=== PATIENT | female | born 1980 | race Caucasian/White ===

== ENCOUNTER → 2016-08-09 | Day surgery (SDC) | payer OTHER ==
[~2016-08-09] VITALS: Ht 172.7 cm; Wt 87.5 kg
[~2016-08-09] MED LIST: GLYCOPYRROLATE INJ 0.2 MG/ML 2 ML VIAL As Ordered ONE; IBUPROFEN 600 MG TAB PO PRN; LATU20TA PO; LIDOCAINE 2% INJ 100 MG/5 ML SDV (FOR ANES.) As Ordered ONE; LR 1,000 ML IV SCH; MIDAZOLAM INJ 2 MG/2 ML VIAL (J2250) As Ordered ONE; NORCO, ANEXSIA 5/325MG TABLET (HYDROcodone/ACETAMINOPHEN) PO PRN; OMEP40CA2 PO; ONDANSETRON 4MG/2ML VIAL (J2405) As Ordered ONE; ONDANSETRON 4MG/2ML VIAL (J2405) IV PRN; PHEN-223 PO; PROPOFOL 200 MG/20 ML VIAL As Ordered ONE; ROCURONIUM BROMIDE 50 MG/5 ML VIAL As Ordered ONE; SELE200C PO; VITA200016 PO; WELLTAB38 PO; fentaNYL 100 MCG/2 ML INJECTION (J3010) IV PRN; fentaNYL 250 MCG/5 ML INJECTION (J3010) As Ordered ONE
[2016-08-09 07:20] LABS: CONTROL LINE UCG INT CTR LINE PRESENT
--- NOTE | 2016-08-09 11:14 | RO ---
DATE OF PROCEDURE: 08/09/2016 PREOPERATIVE DIAGNOSIS/INDICATION FOR SURGERY: Desire for permanent sterilization. POSTOPERATIVE DIAGNOSIS: Desire for permanent sterilization. PROCEDURE: Laparoscopic bilateral tubal ligation by bipolar cautery. SURGEON: Yelitza Ugalde MD CLARIFIER: ANESTHESIA: General endotracheal anesthesia. BRIEF DESCRIPTION OF PROCEDURE AND FINDINGS: Valencia was brought to the operating room where sufficient general endotracheal anesthesia was induced. She was prepped, draped and positioned in the usual sterile fashion with the bladder emptied and uterine manipulator placed. Then, attention turned to the abdomen where a transverse semilunar incision was made below the umbilicus and sharp and blunt dissection continued to the subcutaneous tissues to the level of the rectus fascia, which was transversely incised, secured with #0 Vicryl retention sutures and the peritoneum entered under direct visualization. The Nish cannula was then placed into the peritoneal cavity under direct visualization in an open laparoscopic technique. It was then secured in placed with #0 Vicryl retention sutures and CO2 insufflation was then begun. After adequate CO2 insufflation, the peritoneal cavity was visualized. There were normal shiny peritoneal surfaces throughout. There was no excrescence, exudate, nor ascites. There is some very minor filmy adhesions of the descending colon to the lateral abdominal and pelvic sidewalls, but no significant distorting adhesions. The uterus was elevated using the uterine manipulator, which had already been placed, and the patient was placed in Trendelenburg and we could then see normal tubes. The bipolar cautery was used to coagulate the tubes in four separate locations along each tube in the usual fashion. Pictures were taken to document our progress. Thee was no evidence of endometriosis or other significant lesion. The procedure was then ended. Estimated blood loss for the procedure was maybe 2 mL. Fluid replacement was crystalloid. Complications: None. Condition and Disposition: Valencia tolerated the procedure well and was recovering in the recovery room in good condition.
[2016-08-09 11:30] VITALS: BP 122/74
== END ==
LOC: M SDC 06:38
PROVIDERS: ATTEND Obstetrics & Gynecology
DX: Z30.2 Encounter for sterilization (principal); K21.9 Gastro-esophageal reflux disease without esophagitis; F32.9 Major depressive disorder, single episode, unspecified; F41.9 Anxiety disorder, unspecified; Z87.891 Personal history of nicotine dependence; Z79.899 Other long term (current) drug therapy; Z88.0 Allergy status to penicillin

== ENCOUNTER 2016-08-11 22:02 | Emergency (ER) | payer OTHER ==
[~2016-08-11 22:02] MED LIST changes: -GLYCOPYRROLATE INJ 0.2 MG/ML 2 ML VIAL As Ordered ONE; -IBUPROFEN 600 MG TAB PO PRN; -LIDOCAINE 2% INJ 100 MG/5 ML SDV (FOR ANES.) As Ordered ONE; -LR 1,000 ML IV SCH; -MIDAZOLAM INJ 2 MG/2 ML VIAL (J2250) As Ordered ONE; -NORCO, ANEXSIA 5/325MG TABLET (HYDROcodone/ACETAMINOPHEN) PO PRN; -ONDANSETRON 4MG/2ML VIAL (J2405) As Ordered ONE; -ONDANSETRON 4MG/2ML VIAL (J2405) IV PRN; -PROPOFOL 200 MG/20 ML VIAL As Ordered ONE; -ROCURONIUM BROMIDE 50 MG/5 ML VIAL As Ordered ONE; -fentaNYL 100 MCG/2 ML INJECTION (J3010) IV PRN; -fentaNYL 250 MCG/5 ML INJECTION (J3010) As Ordered ONE
[2016-08-11] MEDS ORDERED: PERCOCET 5MG/325MG TAB As Ordered ONE (22:56)
[2016-08-11 23:13] LABS: MEAN CORPUSCULAR HEMOGLOBIN 33.4 pg (27.0-33.0); MEAN CORPUSCULAR HGB CONC 35.2 g/dl (32.0-36.5); MEAN CORPUSCULAR VOLUME 94.7 fl (80.0-96.0); WHITE BLOOD COUNT 7.8 K/mm3 (4.0-10.0)
[2016-08-11 23:44] LABS: ANION GAP 9 MEQ/L (8-16); BLOOD UREA NITROGEN 15 MG/DL (7-18); CALCIUM LEVEL 8.8 MG/DL (8.5-10.1); CARBON DIOXIDE LEVEL 28 MEQ/L (21-32); CHLORIDE LEVEL 104 MEQ/L (98-107); CREATININE FOR GFR 0.88 MG/DL (0.55-1.02); GLOMERULAR FILTRATION RATE > 60.0 (>60); GLUCOSE, FASTING 77 MG/DL (70-105); POTASSIUM SERUM 3.7 MEQ/L (3.5-5.1); SODIUM LEVEL 141 MEQ/L (136-145)
--- NOTE | 2016-08-12 00:10 | REPUSA ---
CT of the abdomen and pelvis without contrast Clinical statement: Pain, pelvic. Technique: Multiple axial CT images were obtained from the base of the lungs to the floor of the pelv is utilizing 5 mm axial slices without administration of contrast. Coronal and sagittal reconstructio ns were also obtained. No comparison is available. Findings: Chest: The visualized lung bases are clear. Abdomen: There are several tiny pockets of free air under the diaphragm. This is seen both under the right and left diaphragm, as well as within the gallbladder fossa. This is consistent with postsurgic al changes. The kidneys are normal in size bilaterally. There is no evidence of hydronephrosis or nep hrolithiasis. The liver, spleen, pancreas, gallbladder and adrenal glands are unremarkable. The aorta demonstrates normal caliber and contour. There is no abdominal lymphadenopathy or ascites. Pelvis: There is mild sigmoid diverticulosis without evidence of diverticulitis. No obstructive or in flammatory bowel are noted. The appendix is normal. The urinary bladder is within normal limits. Ther e is no pelvic lymphadenopathy or ascites. The other pelvic structures appear unremarkable. Bones: There are no suspicious osseous abnormalities seen. Impression: 1. No focal acute findings to explain the patient's pain. 2. Tiny pockets of free air, which are iatrogenic in nature. 3. No evidence of hydronephrosis or nephrolithiasis. 4. Mild sigmoid diverticulosis without evidence of diverticulitis. No obstructive or inflammatory bow el changes. 5. The uterus and adnexa appear grossly unremarkable. ER physician was notified of these findings at 12:06 AM on 08/12/2015.
[2016-08-12] MEDS ORDERED: CIPROFLOXACIN 500 MG TAB As Ordered ONE (00:14)
--- NOTE | 2016-08-12 00:24 | EDDOCDS ---
Physician Documentation [facility] Name: Valencia Pierce Age: 36 yrs Sex: Female : 1980 Arrival Date: 08/11/2016 Time: 22:02 Bed 7 Private MD: Sally Marcelino Abdul Disposition: 08/12/16 00:14 Discharged to Home/Self Care. Impression: Urinary tract infection, site not specified. - Condition is Stable. - Prescriptions for Cipro 500 mg Oral Tablet - take 1 tablet by ORAL route every 12 hours; 10 tablet. - Medication Reconciliation, Local Pharmacy Hours form. - Follow up: Sally Marcelino; When: Call to arrange an appointment; Reason: Recheck today's complaints. - Problem is new. - Symptoms have improved. Historical: - Allergies: PENICILLINS; - Home Meds: 1. Motrin 600 mg Oral tab as needed (Last dose: 08/11/2016 18:00) - PMHx: none; - PSHx: Tubal ligation; - Social history: Smoking status: Patient states was never smoker of tobacco. No barriers to communication noted, The patient speaks fluent Azeri. - Family history: Not pertinent. - : The pt / caregiver states he / she is not on anticoagulants. Home medication list is obtained from the patient. - Exposure Risk Screening:: None identified. CANDY BUTCHER: 08/11 22:17 3, Living 1, LMP 07/25/2016 mcp Vital Signs: 22:04 BP 139 / 88; Pulse 99; Resp 18; Temp 98.1(O); Pulse Ox 99% on R/A; Weight 90.72 kg / lr2 200 lbs (R); Height 5 ft. 8 in. (172.72 cm) (R); Pain 10/10; 08/12 00:22 BP 139 / 90; Pulse 91; Resp 18 S; Temp 96.9(O); Pulse Ox 99% on R/A; Pain 0/10; af2 08/11 22:04 Body Mass Index 30.41 (90.72 kg, 172.72 cm) lr2 MDM: 08/11 22:40 oxyCODONE-acetaminophen 5 mg-325 mg 2 tabs PO once ordered. ke 22:41 CBC Ordered. EDMS 22:41 BMP Ordered. EDMS 22:41 UA Ordered. EDMS 22:41 Urine Culture Ordered. EDMS 22:41 CT ABD & PELVIS: No Contrast Ordered. EDMS 22:56 Financial registration complete. ks16 22:57 [facility] Payment Agreement was scanned into [employer] and attached to record. ks 23:17 CBC Reviewed. ke 23:17 UA Reviewed. ke 23:49 BMP Reviewed. ke 23:49 Ciprofloxacin 500 mg PO once ordered. ke 08/12 00:13 CT ABD & PELVIS: No Contrast Reviewed. cs11 Administered Medications: 08/11 23:00 Drug: oxyCODONE-acetaminophen 2 tabs [oxycodone-acetaminophen 5 mg-325 mg tablet (2 af2 tabs)] Route: PO; 08/12 00:12 Follow up: Response: Pain is decreased af2 00:21 Drug: Ciprofloxacin 500 mg [ciprofloxacin 500 mg tablet (1 tabs)] Route: PO; af2 Signatures: Dispatcher [employer] EDBryanna Enriquez RN RN mcp Solis Wade, MAMMAL KEEPER MAMMAL KEEPER Ji Maza DO DO cs11 Hallie Lanza RN RN af2 Janell Lezama, Reg Reg ks16 The chart was reviewed and I authenticate all verbal orders and agree with the evaluation and treatment provided.Attachments: 08/11 22:57 [facility] Payment Agreement [email or web address] MTDD
--- NOTE | 2016-08-12 00:24 | EDDOCDS ---
Nurse's Notes [facility] Name: Valencia Pierce Age: 36 yrs Sex: Female : 1980 Arrival Date: 08/11/2016 Time: 22:02 Bed 7 Private MD: Sally Marcelino Abdul Diagnosis: Urinary tract infection, site not specified Presentation: 08/11 22:15 Presenting complaint: Patient states: Had tubes tied on --feels like she has a [facility] bad urinary tract infection. Adult Sepsis Screening: The patient does not have new or worsening altered mentation. Patient's respiratory rate is less than 22. Systolic blood pressure is greater than 100. Patient has a qSOFA score of 0- Negative Sepsis Screen. Suicide/Homicide risk assessment- the patient denies having any suicidal and/or homicidal ideations and does not present with any other emotional, behavioral or mental health complaints. Status: Patient is not a juke box servicer or dependent. Transition of care: patient was not received from another setting of care. 22:15 Acuity: RUTH Level 4 [facility] 22:15 Method Of Arrival: Walkin/Carried/Asstd [facility] Triage Assessment: 22:17 General: Appears uncomfortable, Behavior is cooperative. Pain: Location: right lower mcp quadrant and left lower quadrant Pain currently is 10 out of 10 on a pain scale. HIV screening NA for this visit Offered previously. Neurological: No deficits noted. Respiratory: No deficits noted. : Reports burning with urination pain with urination urinary frequency. Derm: Skin is pink, warm & dry. GLOVE TURNER: 22:17 3, Living 1, LMP 07/25/2016 [facility] Historical: - Allergies: PENICILLINS; - Home Meds: 1. Motrin 600 mg Oral tab as needed (Last dose: 08/11/2016 18:00) - PMHx: none; - PSHx: Tubal ligation; - Social history: Smoking status: Patient states was never smoker of tobacco. No barriers to communication noted, The patient speaks fluent Tamazight. - Family history: Not pertinent. - : The pt / caregiver states he / she is not on anticoagulants. Home medication list is obtained from the patient. - Exposure Risk Screening:: None identified. Screenin:15 Screening information is obtained from the patient. Fall risk: No risks identified. af2 Assistance ADL's: requires no assistance with activities of daily living. Abuse/DV Screen: The patient / caregiver reports he/she is: not in a situation that causes fear, pain or injury. Nutritional screening: No deficits noted. Advance Directives: Currently, there is no health care proxy. home support is adequate. Assessment: 23:16 General: Appears in no apparent distress, Behavior is cooperative. : Reports burning af2 with urination. 08/12 00:21 General: Appears in no apparent distress, Behavior is cooperative. Respiratory: Airway af2 is patent Respiratory effort is even, unlabored. : Reports burning with urination. Derm: Skin is pink, warm & dry. Vital Signs: 08/11 22:04 BP 139 / 88; Pulse 99; Resp 18; Temp 98.1(O); Pulse Ox 99% on R/A; Weight 90.72 kg (R); lr2 Height 5 ft. 8 in. (172.72 cm) (R); Pain 10/10; 08/12 00:22 BP 139 / 90; Pulse 91; Resp 18 S; Temp 96.9(O); Pulse Ox 99% on R/A; Pain 0/10; af2 08/11 22:04 Body Mass Index 30.41 (90.72 kg, 172.72 cm) lr2 Vitals: 08/11 22:04 Log In Time: August 11, 2016 at 22:02. lr2 ED Course: 22:03 Patient visited by Adilia Abel. lr2 22:03 Patient moved to Waiting lr2 22:05 Sally Marcelino is Private Physician. lr2 22:05 Patient moved to Pre RCE lr2 22:16 Triage Initiated mcp 22:18 Patient visited by Bryanna Hardin, ROBINSON. mcp 22:26 Hallie Lanza,RN is Primary Nurse. sew 22:26 Patient moved to 7 sew 22:27 [facility] ke 22:27 Patient visited by Solis Wade FNP. ke 22:27 Patient visited by Solis Wade FNP. ke 22:57 [facility] Payment Agreement was scanned into [employer] and attached to record. ks16 22:59 Patient visited by Solis Wade FNP. ke 23:15 The patient / caregiver is instructed regarding the plan of care and ED course. Patient af2 has correct armband on for positive identification. 23:16 No IV's were initiated during this patient's visit. No procedures done that require af2 assistance. Labs drawn. (by ED staff). Sent per order to lab. Urine collected. Clean catch specimen. Urine specimen sent to lab. 23:17 Patient visited by Hallie Lanza RN. af2 23:40 Patient visited by Solis Wade FNP. uday 08/12 00:10 Patient visited by Hallie Lanza RN. af2 00:12 CT ABD & PELVIS: No Contrast Returned. EDMS 00:14 Ji Guzman DO is Attending Physician. cs11 00:14 Sally Marcelino is Referral Physician. cs11 Administered Medications: 08/11 23:00 Drug: oxyCODONE-acetaminophen 2 tabs [oxycodone-acetaminophen 5 mg-325 mg tablet (2 af2 tabs)] Route: PO; 08/12 00:12 Follow up: Response: Pain is decreased af2 00:21 Drug: Ciprofloxacin 500 mg [ciprofloxacin 500 mg tablet (1 tabs)] Route: PO; af2 Order Results: Lab Order: CBC; SPEC'M 08/11/16 23:01 Test: WHITE BLOOD COUNT; Value: 7.8; Range: 4.0-10.0; Units: K/mm3; Status: F Test: RED BLOOD COUNT; Value: 4.06; Range: 4.00-5.40; Units: M/mm3; Status: F Test: HEMOGLOBIN; Value: 13.5; Range: 12.0-16.0; Units: g/dl; Status: F Test: HEMATOCRIT; Value: 38.5; Range: 36.0-47.0; Units: %; Status: F Test: MEAN CORPUSCULAR VOLUME; Value: 94.7; Range: 80.0-96.0; Units: fl; Status: F Test: MEAN CORPUSCULAR HEMOGLOBIN; Value: 33.4; Range: 27.0-33.0; Abnormal: Above high normal; Units: pg; Status: F Test: MEAN CORPUSCULAR HGB CONC; Value: 35.2; Range: 32.0-36.5; Units: g/dl; Status: F Test: RED CELL DISTRIBUTION WIDTH; Value: 13.0; Range: 11.5-14.5; Units: %; Status: F Test: PLATELET COUNT, AUTOMATED; Value: 219; Range: 150-450; Units: k/mm3; Status: F Lab Order: [facility]; SPEC'M 08/11/16 23:01 Test: GLUCOSE, FASTING; Value: 77; Range: 70-105; Units: MG/DL; Status: F Test: BLOOD UREA NITROGEN; Value: 15; Range: 7-18; Units: MG/DL; Status: F Test: CREATININE FOR GFR; Value: 0.88; Range: 0.55-1.02; Units: MG/DL; Status: F Test: GLOMERULAR FILTRATION RATE; Value: > 60.0; Range: >60; Status: F Test: SODIUM LEVEL; Value: 141; Range: 136-145; Units: MEQ/L; Status: F Test: POTASSIUM SERUM; Value: 3.7; Range: 3.5-5.1; Units: MEQ/L; Status: F Test: CHLORIDE LEVEL; Value: 104; Range: 98-107; Units: MEQ/L; Status: F Test: CARBON DIOXIDE LEVEL; Value: 28; Range: 21-32; Units: MEQ/L; Status: F Test: ANION GAP; Value: 9; Range: 8-16; Units: MEQ/L; Status: F Test: CALCIUM LEVEL; Value: 8.8; Range: 8.5-10.1; Units: MG/DL; Status: F Test Note: ; Units are mL/min/1.73 m2 Chronic Kidney Disease Staging per NKF: Stage I & II GFR >=60 Normal to Mildly Decreased Stage III GFR 30-59 Moderately Decreased Stage IV GFR 15-29 Severely Decreased Stage V GFR <15 Very Little GFR Left ESRD GFR <15 on CORE PASTER Lab Order: ; SPEC'M 08/11/16 23:01 Test: APPEARANCE, URINE; Value: HAZY; Range: CLEAR; Status: F Test: COLOR, URINE; Value: YELLOW; Range: YELLOW; Status: F Test: PH,URINE; Value: 5.0; Range: 5.0-9.0; Units: UNITS; Status: F Test: SPECIFIC GRAVITY URINE AUTO; Value: 1.026; Range: 1.002-1.035; Status: F Test: PROTEIN, URINE AUTO; Value: NEGATIVE; Range: NEGATIVE; Units: mg/dL; Status: F Test: GLUCOSE, URINE (UA) AUTO; Value: NEGATIVE; Range: NEGATIVE; Units: mg/dL; Status: F Test: KETONE, URINE AUTO; Value: NEGATIVE; Range: NEGATIVE; Units: mg/dL; Status: F Test: UROBILINOGEN, URINE AUTO; Value: 0.2; Range: 0.0-2.0; Units: mg/dL; Status: F Test: BILIRUBIN, URINE AUTO; Value: NEGATIVE; Range: NEGATIVE; Status: F Test: NITRITE, URINE AUTO; Value: NEGATIVE; Range: NEGATIVE; Status: F Test: LEUKOCYTE ESTERASE, URINE AUTO; Value: 3+; Range: NEGATIVE; Abnormal: Above high normal; Status: F Test: BLOOD, URINE BLOOD; Value: 2+; Range: NEGATIVE; Abnormal: Above high normal; Status: F Test: WBC, URINE AUTO; Value: 83; Range: 0-3; Abnormal: Above high normal; Units: /HPF; Status: F Test: RBC, URINE AUTO; Value: 11; Range: 0-3; Abnormal: Above high normal; Units: /HPF; Status: F Test: BACTERIA, URINE AUTO; Value: 2+; Range: NEGATIVE; Abnormal: Above high normal; Status: F Test: SQUAMOUS EPITHELIAL CELL UR AU; Value: 6; Range: 0-6; Units: /HPF; Status: F Test: MUCUS, URINE; Value: SMALL; Range: NEGATIVE; Status: F Test: HYALINE CAST, URINE AUTO; Value: 0; Range: 0-1; Units: /LPF; Status: F Radiology Order: CT ABD & PELVIS: No Contrast Test: CT ABD & PELVIS: No Contrast REASON FOR EXAMINATION: pelvic pain post operative; ; CT of the abdomen and pelvis without contrast; Clinical statement: Pain, pelvic.; Technique: Multiple axial CT images were obtained from the base of the lungs to the floor of the pelv; is utilizing 5 mm axial slices without administration of contrast. Coronal and sagittal reconstructio; ns were also obtained.; No comparison is available.; Findings:; Chest: The visualized lung bases are clear.; Abdomen: There are several tiny pockets of free air under the diaphragm. This is seen both under the; right and left diaphragm, as well as within the gallbladder fossa. This is consistent with postsurgic; al changes. The kidneys are normal in size bilaterally. There is no evidence of hydronephrosis or nep; hrolithiasis. The liver, spleen, pancreas, gallbladder and adrenal glands are unremarkable. The aorta; demonstrates normal caliber and contour. There is no abdominal lymphadenopathy or ascites.; Pelvis: There is mild sigmoid diverticulosis without evidence of diverticulitis. No obstructive or in; flammatory bowel are noted. The appendix is normal. The urinary bladder is within normal limits. Ther; e is no pelvic lymphadenopathy or ascites. The other pelvic structures appear unremarkable.; Bones: There are no suspicious osseous abnormalities seen.; Impression:; 1. No focal acute findings to explain the patient's pain.; 2. Tiny pockets of free air, which are iatrogenic in nature.; 3. No evidence of hydronephrosis or nephrolithiasis.; 4. Mild sigmoid diverticulosis without evidence of diverticulitis. No obstructive or inflammatory bow; el changes.; 5. The uterus and adnexa appear grossly unremarkable.; ER physician was notified of these findings at 12:06 AM on 08/12/2015.; ; Outcome: 00:14 Discharge ordered by Provider. cs11 00:22 Discharge Assessment: Patient awake, alert and oriented x 3. No cognitive and/or af2 functional deficits noted. Patient verbalized understanding of disposition instructions. patient administered narcotics - yes. Pt provided with safe discharge. The following High Risk Discharge criteria are identified: None. Discharged to home ambulatory. Condition: stable. Discharge instructions given to patient, Instructed on discharge instructions, follow up and referral plans. medication usage, no driving heavy equipment, Demonstrated understanding of instructions, medications, Pt was receptive of discharge instructions/ teaching. CT Study completed. Property :Personal belongings accompany Pt. 00:23 Patient left the ED. af2 Signatures: Dispatcher [employer] EDBryanna Enriquez, RN Solis Horne mcp, FNP FNP ke Wallace, Sarah sew Schiff, Craig, DO DO cs11 Hallie Lanza RN RN af2 Janell Lezama, Reg Reg ks16 Adilia Abel lr2 MTDD
--- NOTE | 2016-08-14 01:24 | EDDOCDS ---
Physician Documentation [facility] Name: Valencia Pierce Age: 36 yrs Sex: Female : 1980 Arrival Date: 08/11/2016 Time: 22:02 Bed 7 Private MD: Sally Marcelino Abdul Disposition: 08/12/16 00:14 Discharged to Home/Self Care. Impression: Urinary tract infection, site not specified. - Condition is Stable. - Prescriptions for Cipro 500 mg Oral Tablet - take 1 tablet by ORAL route every 12 hours; 10 tablet. - Medication Reconciliation, Local Pharmacy Hours form. - Follow up: Sally Marcelino; When: Call to arrange an appointment; Reason: Recheck today's complaints. - Problem is new. - Symptoms have improved. Historical: - Allergies: PENICILLINS; - Home Meds: 1. Motrin 600 mg Oral tab as needed (Last dose: 08/11/2016 18:00) - PMHx: none; - PSHx: Tubal ligation; - Social history: Smoking status: Patient states was never smoker of tobacco. No barriers to communication noted, The patient speaks fluent Romanian. - Family history: Not pertinent. - : The pt / caregiver states he / she is not on anticoagulants. Home medication list is obtained from the patient. - Exposure Risk Screening:: None identified. BLANKET INSPECTOR: 08/11 22:17 3, Living 1, LMP 07/25/2016 mcp Vital Signs: 22:04 BP 139 / 88; Pulse 99; Resp 18; Temp 98.1(O); Pulse Ox 99% on R/A; Weight 90.72 kg / lr2 200 lbs (R); Height 5 ft. 8 in. (172.72 cm) (R); Pain 10/10; 08/12 00:22 BP 139 / 90; Pulse 91; Resp 18 S; Temp 96.9(O); Pulse Ox 99% on R/A; Pain 0/10; af2 08/11 22:04 Body Mass Index 30.41 (90.72 kg, 172.72 cm) lr2 MDM: 08/11 22:40 oxyCODONE-acetaminophen 5 mg-325 mg 2 tabs PO once ordered. ke 22:41 CBC Ordered. EDMS 22:41 BMP Ordered. EDMS 22:41 UA Ordered. EDMS 22:41 Urine Culture Ordered. EDMS 22:41 CT ABD & PELVIS: No Contrast Ordered. EDMS 22:56 Financial registration complete. ks 22:57 [facility] Payment Agreement was scanned into [employer] and attached to record. ks 23:17 CBC Reviewed. ke 23:17 UA Reviewed. ke 23:49 BMP Reviewed. ke 23:49 Ciprofloxacin 500 mg PO once ordered. 08/12 00:13 CT ABD & PELVIS: No Contrast Reviewed. [facility] 08:03 T-Sheet-- Draft Copy was scanned into [employer] and attached to record. [facility] Administered Medications: 08/11 23:00 Drug: oxyCODONE-acetaminophen 2 tabs [oxycodone-acetaminophen 5 mg-325 mg tablet (2 af2 tabs)] Route: PO; 08/12 00:12 Follow up: Response: Pain is decreased af2 00:21 Drug: Ciprofloxacin 500 mg [ciprofloxacin 500 mg tablet (1 tabs)] Route: PO; af2 Signatures: Dispatcher [employer] Bryanna Enciso RN RN mcp Elsner, Karl, DRUM ATTENDANT DRUM ATTENDANT Ji Maza, DO cs11 Hallie Lanza RN RN af2 Janell Lezama, Reg Reg ks16 Candice Adan [facility] The chart was reviewed and I authenticate all verbal orders and agree with the evaluation and treatment provided.Attachments: 08/11 21:57 [facility] Payment Agreement 08/12 08:03 T-Sheet-- Draft Copy [facility] Chart Complete MTDD
--- NOTE | 2016-08-14 01:24 | EDDOCDS ---
Nurse's Notes [facility] Name: Valencia Pierce Age: 36 yrs Sex: Female : 1980 Arrival Date: 08/11/2016 Time: 22:02 Bed 7 Private MD: Sally Marcelino Abdul Diagnosis: Urinary tract infection, site not specified Presentation: 08/11 22:15 Presenting complaint: Patient states: Had tubes tied on --feels like she has a [facility] bad urinary tract infection. Adult Sepsis Screening: The patient does not have new or worsening altered mentation. Patient's respiratory rate is less than 22. Systolic blood pressure is greater than 100. Patient has a qSOFA score of 0- Negative Sepsis Screen. Suicide/Homicide risk assessment- the patient denies having any suicidal and/or homicidal ideations and does not present with any other emotional, behavioral or mental health complaints. 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 Transition of care: patient was not received from another setting of care. 22:15 Acuity: RUTH Level 4 [facility] 22:15 Method Of Arrival: Walkin/Carried/Asstd [facility] Triage Assessment: 22:17 General: Appears uncomfortable, Behavior is cooperative. Pain: Location: right lower mcp quadrant and left lower quadrant Pain currently is 10 out of 10 on a pain scale. HIV screening NA for this visit Offered previously. Neurological: No deficits noted. Respiratory: No deficits noted. : Reports burning with urination pain with urination urinary frequency. Derm: Skin is pink, warm & dry. 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 Motrin 600 mg Oral tab as needed (Last dose: 08/11/2016 18:00) - PMHx: none; - PSHx: Tubal ligation; - Social history: Smoking status: Patient states was never smoker of tobacco. No barriers to communication noted, The patient speaks fluent Croatian. - Family history: Not pertinent. - : The pt / caregiver states he / she is not on anticoagulants. Home medication list is obtained from the patient. - Exposure Risk Screening:: None identified. Screenin:15 Screening information is obtained from the patient. Fall risk: No risks identified. af2 Assistance ADL's: requires no assistance with activities of daily living. Abuse/DV Screen: The patient / caregiver reports he/she is: not in a situation that causes fear, pain or injury. Nutritional screening: No deficits noted. Advance Directives: Currently, there is no health care proxy. home support is adequate. Assessment: 23:16 General: Appears in no apparent distress, Behavior is cooperative. : Reports burning af2 with urination. 08/12 00:21 General: Appears in no apparent distress, Behavior is cooperative. Respiratory: Airway af2 is patent Respiratory effort is even, unlabored. : Reports burning with urination. Derm: Skin is pink, warm & dry. Vital Signs: 08/11 22:04 BP 139 / 88; Pulse 99; Resp 18; Temp 98.1(O); Pulse Ox 99% on R/A; Weight 90.72 kg (R); lr2 Height 5 ft. 8 in. (172.72 cm) (R); Pain 10/10; 08/12 00:22 BP 139 / 90; Pulse 91; Resp 18 S; Temp 96.9(O); Pulse Ox 99% on R/A; Pain 0/10; af2 08/11 22:04 Body Mass Index 30.41 (90.72 kg, 172.72 cm) lr2 Vitals: 08/11 22:04 Log In Time: August 11, 2016 at 22:02. lr2 ED Course: 22:03 Patient visited by Adilia Abel. lr2 22:03 Patient moved to Waiting lr2 22:05 Sally Marcelino is Private Physician. lr2 22:05 Patient moved to Pre RCE lr2 22:16 Triage Initiated mcp 22:18 Patient visited by Bryanna Hardin, ROBINSON. mcp 22:26 Hallie Lanza,RN is Primary Nurse. sew 22:26 Patient moved to 7 sew 22:27 [facility]. ke 22:27 Patient visited by Solis Wade FNP. ke 22:27 Patient visited by Solis Wade FNP. ke 22:57 [facility] Payment Agreement was scanned into [employer] and attached to record. ks16 22:59 Patient visited by Solis Wade FNP. ke 23:15 The patient / caregiver is instructed regarding the plan of care and ED course. Patient af2 has correct armband on for positive identification. 23:16 No IV's were initiated during this patient's visit. No procedures done that require af2 assistance. Labs drawn. (by ED staff). Sent per order to lab. Urine collected. Clean catch specimen. Urine specimen sent to lab. 23:17 Patient visited by Hallie Lanza RN. af2 23:40 Patient visited by Solis Wade FNP. ke 08/12 00:10 Patient visited by Hallie Lanza RN. af2 00:12 CT ABD & PELVIS: No Contrast Returned. EDMS 00:14 Ji Guzman DO is Attending Physician. cs11 00:14 Sally Marcelino is Referral Physician. cs11 08:03 T-Sheet-- Draft Copy was scanned into [employer] and attached to record. seh Administered Medications: 08/11 23:00 Drug: oxyCODONE-acetaminophen 2 tabs [oxycodone-acetaminophen 5 mg-325 mg tablet (2 af2 tabs)] Route: PO; 08/12 00:12 Follow up: Response: Pain is decreased af2 00:21 Drug: Ciprofloxacin 500 mg [ciprofloxacin 500 mg tablet (1 tabs)] Route: PO; af2 Order Results: Lab Order: CBC; SPEC'M 08/11/16 23:01 Test: WHITE BLOOD COUNT; Value: 7.8; Range: 4.0-10.0; Units: K/mm3; Status: F Test: RED BLOOD COUNT; Value: 4.06; Range: 4.00-5.40; Units: M/mm3; Status: F Test: HEMOGLOBIN; Value: 13.5; Range: 12.0-16.0; Units: g/dl; Status: F Test: HEMATOCRIT; Value: 38.5; Range: 36.0-47.0; Units: %; Status: F Test: MEAN CORPUSCULAR VOLUME; Value: 94.7; Range: 80.0-96.0; Units: fl; Status: F Test: MEAN CORPUSCULAR HEMOGLOBIN; Value: 33.4; Range: 27.0-33.0; Abnormal: Above high normal; Units: pg; Status: F Test: MEAN CORPUSCULAR HGB CONC; Value: 35.2; Range: 32.0-36.5; Units: g/dl; Status: F Test: RED CELL DISTRIBUTION WIDTH; Value: 13.0; Range: 11.5-14.5; Units: %; Status: F Test: PLATELET COUNT, AUTOMATED; Value: 219; Range: 150-450; Units: k/mm3; Status: F Lab Order: [facility]; SPEC'M 08/11/16 23:01 Test: GLUCOSE, FASTING; Value: 77; Range: 70-105; Units: MG/DL; Status: F Test: BLOOD UREA NITROGEN; Value: 15; Range: 7-18; Units: MG/DL; Status: F Test: CREATININE FOR GFR; Value: 0.88; Range: 0.55-1.02; Units: MG/DL; Status: F Test: GLOMERULAR FILTRATION RATE; Value: > 60.0; Range: >60; Status: F Test: SODIUM LEVEL; Value: 141; Range: 136-145; Units: MEQ/L; Status: F Test: POTASSIUM SERUM; Value: 3.7; Range: 3.5-5.1; Units: MEQ/L; Status: F Test: CHLORIDE LEVEL; Value: 104; Range: 98-107; Units: MEQ/L; Status: F Test: CARBON DIOXIDE LEVEL; Value: 28; Range: 21-32; Units: MEQ/L; Status: F Test: ANION GAP; Value: 9; Range: 8-16; Units: MEQ/L; Status: F Test: CALCIUM LEVEL; Value: 8.8; Range: 8.5-10.1; Units: MG/DL; Status: F Test Note: ; Units are mL/min/1.73 m2 Chronic Kidney Disease Staging per NKF: Stage I & II GFR >=60 Normal to Mildly Decreased Stage III GFR 30-59 Moderately Decreased Stage IV GFR 15-29 Severely Decreased Stage V GFR <15 Very Little GFR Left ESRD GFR <15 on COKE WORKER Lab Order: ; SPEC'08/11/16 23:01 Test: APPEARANCE, URINE; Value: HAZY; Range: CLEAR; Status: F Test: COLOR, URINE; Value: YELLOW; Range: YELLOW; Status: F Test: PH,URINE; Value: 5.0; Range: 5.0-9.0; Units: UNITS; Status: F Test: SPECIFIC GRAVITY URINE AUTO; Value: 1.026; Range: 1.002-1.035; Status: F Test: PROTEIN, URINE AUTO; Value: NEGATIVE; Range: NEGATIVE; Units: mg/dL; Status: F Test: GLUCOSE, URINE (UA) AUTO; Value: NEGATIVE; Range: NEGATIVE; Units: mg/dL; Status: F Test: KETONE, URINE AUTO; Value: NEGATIVE; Range: NEGATIVE; Units: mg/dL; Status: F Test: UROBILINOGEN, URINE AUTO; Value: 0.2; Range: 0.0-2.0; Units: mg/dL; Status: F Test: BILIRUBIN, URINE AUTO; Value: NEGATIVE; Range: NEGATIVE; Status: F Test: NITRITE, URINE AUTO; Value: NEGATIVE; Range: NEGATIVE; Status: F Test: LEUKOCYTE ESTERASE, URINE AUTO; Value: 3+; Range: NEGATIVE; Abnormal: Above high normal; Status: F Test: BLOOD, URINE BLOOD; Value: 2+; Range: NEGATIVE; Abnormal: Above high normal; Status: F Test: WBC, URINE AUTO; Value: 83; Range: 0-3; Abnormal: Above high normal; Units: /HPF; Status: F Test: RBC, URINE AUTO; Value: 11; Range: 0-3; Abnormal: Above high normal; Units: /HPF; Status: F Test: BACTERIA, URINE AUTO; Value: 2+; Range: NEGATIVE; Abnormal: Above high normal; Status: F Test: SQUAMOUS EPITHELIAL CELL UR AU; Value: 6; Range: 0-6; Units: /HPF; Status: F Test: MUCUS, URINE; Value: SMALL; Range: NEGATIVE; Status: F Test: HYALINE CAST, URINE AUTO; Value: 0; Range: 0-1; Units: /LPF; Status: F Radiology Order: CT ABD & PELVIS: No Contrast Test: CT ABD & PELVIS: No Contrast REASON FOR EXAMINATION: pelvic pain post operative; ; CT of the abdomen and pelvis without contrast; Clinical statement: Pain, pelvic.; Technique: Multiple axial CT images were obtained from the base of the lungs to the floor of the pelv; is utilizing 5 mm axial slices without administration of contrast. Coronal and sagittal reconstructio; ns were also obtained.; No comparison is available.; Findings:; Chest: The visualized lung bases are clear.; Abdomen: There are several tiny pockets of free air under the diaphragm. This is seen both under the; right and left diaphragm, as well as within the gallbladder fossa. This is consistent with postsurgic; al changes. The kidneys are normal in size bilaterally. There is no evidence of hydronephrosis or nep; hrolithiasis. The liver, spleen, pancreas, gallbladder and adrenal glands are unremarkable. The aorta; demonstrates normal caliber and contour. There is no abdominal lymphadenopathy or ascites.; Pelvis: There is mild sigmoid diverticulosis without evidence of diverticulitis. No obstructive or in; flammatory bowel are noted. The appendix is normal. The urinary bladder is within normal limits. Ther; e is no pelvic lymphadenopathy or ascites. The other pelvic structures appear unremarkable.; Bones: There are no suspicious osseous abnormalities seen.; Impression:; 1. No focal acute findings to explain the patient's pain.; 2. Tiny pockets of free air, which are iatrogenic in nature.; 3. No evidence of hydronephrosis or nephrolithiasis.; 4. Mild sigmoid diverticulosis without evidence of diverticulitis. No obstructive or inflammatory bow; el changes.; 5. The uterus and adnexa appear grossly unremarkable.; ER physician was notified of these findings at 12:06 AM on 08/12/2015.; ; Outcome: 00:14 Discharge ordered by Provider. cs11 00:22 Discharge Assessment: Patient awake, alert and oriented x 3. No cognitive and/or af2 functional deficits noted. Patient verbalized understanding of disposition instructions. patient administered narcotics - yes. Pt provided with safe discharge. The following High Risk Discharge criteria are identified: None. Discharged to home ambulatory. Condition: stable. Discharge instructions given to patient, Instructed on discharge instructions, follow up and referral plans. medication usage, no driving heavy equipment, Demonstrated understanding of instructions, medications, Pt was receptive of discharge instructions/ teaching. CT Study completed. Property :Personal belongings accompany Pt. 00:23 Patient left the ED. af2 Signatures: Dispatcher [employer] EDBryanna Enriquez, RN RN Solis Ritter, ACCESS ANALYST Candice Latham Craig, DO cs11 Hallie Lanza RN RN af2 Janell Lezama, Reg Reg ks16 Loco, Adilia Jackson2 Chart Complete MTDD
--- NOTE | 2016-08-14 01:24 | EDDOCDS ---
Physician Documentation [facility] Name: Valencia Pierce Age: 36 yrs Sex: Female : 1980 Arrival Date: 08/11/2016 Time: 22:02 Bed 7 Private MD: Sally Marcelino Abdul Disposition: 08/12/16 00:14 Discharged to Home/Self Care. Impression: Urinary tract infection, site not specified. - Condition is Stable. - Prescriptions for Cipro 500 mg Oral Tablet - take 1 tablet by ORAL route every 12 hours; 10 tablet. - Medication Reconciliation, Local Pharmacy Hours form. - Follow up: Sally Marcelino; When: Call to arrange an appointment; Reason: Recheck today's complaints. - Problem is new. - Symptoms have improved. Historical: - Allergies: PENICILLINS; - Home Meds: 1. Motrin 600 mg Oral tab as needed (Last dose: 08/11/2016 18:00) - PMHx: none; - PSHx: Tubal ligation; - Social history: Smoking status: Patient states was never smoker of tobacco. No barriers to communication noted, The patient speaks fluent Mongolian. - Family history: Not pertinent. - : The pt / caregiver states he / she is not on anticoagulants. Home medication list is obtained from the patient. - Exposure Risk Screening:: None identified. 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 8 in. (172.72 cm) (R); Pain 10/10; 08/12 00:22 BP 139 / 90; Pulse 91; Resp 18 S; Temp 96.9(O); Pulse Ox 99% on R/A; Pain 0/10; af2 08/11 22:04 Body Mass Index 30.41 (90.72 kg, 172.72 cm) lr2 MDM: 08/11 22:40 oxyCODONE-acetaminophen 5 mg-325 mg 2 tabs PO once ordered. ke 22:41 CBC Ordered. EDMS 22:41 BMP Ordered. EDMS 22:41 UA Ordered. EDMS 22:41 Urine Culture Ordered. EDMS 22:41 CT ABD & PELVIS: No Contrast Ordered. EDMS 22:56 Financial registration complete. ks 22:57 [facility] Payment Agreement was scanned into [employer] and attached to record. ks 23:17 CBC Reviewed. ke 23:17 UA Reviewed. ke 23:49 BMP Reviewed. ke 23:49 Ciprofloxacin 500 mg PO once ordered. 08/12 00:13 CT ABD & PELVIS: No Contrast Reviewed. [facility] 08:03 T-Sheet-- Draft Copy was scanned into [employer] and attached to record. [facility] Administered Medications: 08/11 23:00 Drug: oxyCODONE-acetaminophen 2 tabs [oxycodone-acetaminophen 5 mg-325 mg tablet (2 af2 tabs)] Route: PO; 08/12 00:12 Follow up: Response: Pain is decreased af2 00:21 Drug: Ciprofloxacin 500 mg [ciprofloxacin 500 mg tablet (1 tabs)] Route: PO; af2 Signatures: Dispatcher [employer] Bryanna Enciso RN RN mcp Elsner, Karl, PLUMBER CUB PLUMBER CUB Ji Maza, DO cs11 Hallie Lanza RN RN af2 Janell Lezama, Reg Reg ks16 Candice Adan [facility] The chart was reviewed and I authenticate all verbal orders and agree with the evaluation and treatment provided.Attachments: 08/11 21:57 [facility] Payment Agreement 08/12 08:03 T-Sheet-- Draft Copy [facility] Chart Complete MTDD
--- NOTE | 2016-08-16 15:35 | EDDOCDS ---
Physician Documentation [facility] Name: Valencia Pierce Age: 36 yrs Sex: Female : 1980 Arrival Date: 08/11/2016 Time: 22:02 Bed 7 Private MD: Sally Marcelino Abdul Disposition: 08/12/16 00:14 Discharged to Home/Self Care. Impression: Urinary tract infection, site not specified. - Condition is Stable. - Prescriptions for Cipro 500 mg Oral Tablet - take 1 tablet by ORAL route every 12 hours; 10 tablet. - Medication Reconciliation, Local Pharmacy Hours form. - Follow up: Sally Marcelino; When: Call to arrange an appointment; Reason: Recheck today's complaints. - Problem is new. - Symptoms have improved. Historical: - Allergies: PENICILLINS; - Home Meds: 1. Motrin 600 mg Oral tab as needed (Last dose: 08/11/2016 18:00) - PMHx: none; - PSHx: Tubal ligation; - Social history: Smoking status: Patient states was never smoker of tobacco. No barriers to communication noted, The patient speaks fluent Greek. - Family history: Not pertinent. - : The pt / caregiver states he / she is not on anticoagulants. Home medication list is obtained from the patient. - Exposure Risk Screening:: None identified. 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 8 in. (172.72 cm) (R); Pain 10/10; 08/12 00:22 BP 139 / 90; Pulse 91; Resp 18 S; Temp 96.9(O); Pulse Ox 99% on R/A; Pain 0/10; af2 08/11 22:04 Body Mass Index 30.41 (90.72 kg, 172.72 cm) lr2 MDM: 08/11 22:40 oxyCODONE-acetaminophen 5 mg-325 mg 2 tabs PO once ordered. ke 22:41 CBC Ordered. EDMS 22:41 BMP Ordered. EDMS 22:41 UA Ordered. EDMS 22:41 Urine Culture Ordered. EDMS 22:41 CT ABD & PELVIS: No Contrast Ordered. EDMS 22:56 Financial registration complete. :57 [facility] Payment Agreement was scanned into [employer] and attached to record. ks 23:17 CBC Reviewed. ke 23:17 UA Reviewed. ke 23:49 BMP Reviewed. ke 23:49 Ciprofloxacin 500 mg PO once ordered. ke 08/12 00:13 CT ABD & PELVIS: No Contrast Reviewed. [facility] 08:03 T-Sheet-- Draft Copy was scanned into [employer] and attached to record. [facility] Administered Medications: 08/11 23:00 Drug: oxyCODONE-acetaminophen 2 tabs [oxycodone-acetaminophen 5 mg-325 mg tablet (2 af2 tabs)] Route: PO; 08/12 00:12 Follow up: Response: Pain is decreased af2 00:21 Drug: Ciprofloxacin 500 mg [ciprofloxacin 500 mg tablet (1 tabs)] Route: PO; af2 Signatures: Dispatcher [employer] Bryanna Enciso RN RN mcp Elsner, Karl, DOORKEEPER DOORKEEPER Ji Maza, DO cs11 Hallie Lanza RN RN af2 Janell Lezama, Reg Reg ks16 Candice Adan [facility] The chart was reviewed and I authenticate all verbal orders and agree with the evaluation and treatment provided.Attachments: 08/11 21:57 [facility] Payment Agreement 08/12 08:03 T-Sheet-- Draft Copy [facility] MTDD
--- NOTE | 2016-08-16 15:35 | EDDOCDS ---
Physician Documentation [facility] Name: Valencia Pierce Age: 36 yrs Sex: Female : 1980 Arrival Date: 08/11/2016 Time: 22:02 Bed 7 Private MD: Sally Marcelino Abdul Disposition: 08/12/16 00:14 Discharged to Home/Self Care. Impression: Urinary tract infection, site not specified. - Condition is Stable. - Prescriptions for Cipro 500 mg Oral Tablet - take 1 tablet by ORAL route every 12 hours; 10 tablet. - Medication Reconciliation, Local Pharmacy Hours form. - Follow up: Sally Marcelino; When: Call to arrange an appointment; Reason: Recheck today's complaints. - Problem is new. - Symptoms have improved. Historical: - Allergies: PENICILLINS; - Home Meds: 1. Motrin 600 mg Oral tab as needed (Last dose: 08/11/2016 18:00) - PMHx: none; - PSHx: Tubal ligation; - Social history: Smoking status: Patient states was never smoker of tobacco. No barriers to communication noted, The patient speaks fluent Slovenian. - Family history: Not pertinent. - : The pt / caregiver states he / she is not on anticoagulants. Home medication list is obtained from the patient. - Exposure Risk Screening:: None identified. 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 8 in. (172.72 cm) (R); Pain 10/10; 08/12 00:22 BP 139 / 90; Pulse 91; Resp 18 S; Temp 96.9(O); Pulse Ox 99% on R/A; Pain 0/10; af2 08/11 22:04 Body Mass Index 30.41 (90.72 kg, 172.72 cm) lr2 MDM: 08/11 22:40 oxyCODONE-acetaminophen 5 mg-325 mg 2 tabs PO once ordered. ke 22:41 CBC Ordered. EDMS 22:41 BMP Ordered. EDMS 22:41 UA Ordered. EDMS 22:41 Urine Culture Ordered. EDMS 22:41 CT ABD & PELVIS: No Contrast Ordered. EDMS 22:56 Financial registration complete. :57 [facility] Payment Agreement was scanned into [employer] and attached to record. ks 23:17 CBC Reviewed. ke 23:17 UA Reviewed. ke 23:49 BMP Reviewed. ke 23:49 Ciprofloxacin 500 mg PO once ordered. ke 08/12 00:13 CT ABD & PELVIS: No Contrast Reviewed. [facility] 08:03 T-Sheet-- Draft Copy was scanned into [employer] and attached to record. [facility] Administered Medications: 08/11 23:00 Drug: oxyCODONE-acetaminophen 2 tabs [oxycodone-acetaminophen 5 mg-325 mg tablet (2 af2 tabs)] Route: PO; 08/12 00:12 Follow up: Response: Pain is decreased af2 00:21 Drug: Ciprofloxacin 500 mg [ciprofloxacin 500 mg tablet (1 tabs)] Route: PO; af2 Signatures: Dispatcher [employer] Bryanna Enciso RN RN mcp Elsner, Karl, CASING CREW PUSHER CASING CREW PUSHER Ji Maza, DO cs11 Hallie Lanza RN RN af2 Janell Lezama, Reg Reg ks16 Candice Adan [facility] The chart was reviewed and I authenticate all verbal orders and agree with the evaluation and treatment provided.Attachments: 08/11 21:57 [facility] Payment Agreement 08/12 08:03 T-Sheet-- Draft Copy [facility] MTDD
--- NOTE | 2016-08-16 15:35 | EDDOCDS ---
Nurse's Notes [facility] Name: Valencia Pierce Age: 36 yrs Sex: Female : 1980 Arrival Date: 08/11/2016 Time: 22:02 Bed 7 Private MD: Sally Marcelino Abdul Diagnosis: Urinary tract infection, site not specified Presentation: 08/11 22:15 Presenting complaint: Patient states: Had tubes tied on --feels like she has a [facility] bad urinary tract infection. Adult Sepsis Screening: The patient does not have new or worsening altered mentation. Patient's respiratory rate is less than 22. Systolic blood pressure is greater than 100. Patient has a qSOFA score of 0- Negative Sepsis Screen. Suicide/Homicide risk assessment- the patient denies having any suicidal and/or homicidal ideations and does not present with any other emotional, behavioral or mental health complaints. 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 Transition of care: patient was not received from another setting of care. 22:15 Acuity: RUTH Level [address] [facility] 22:15 Method Of Arrival: Walkin/Carried/Asstd [facility] Triage Assessment: 22:17 General: Appears uncomfortable, Behavior is cooperative. Pain: Location: right lower mcp quadrant and left lower quadrant Pain currently is 10 out of 10 on a pain scale. HIV screening NA for this visit Offered previously. Neurological: No deficits noted. Respiratory: No deficits noted. : Reports burning with urination pain with urination urinary frequency. Derm: Skin is pink, warm & dry. 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 Historical: - Allergies: PENICILLINS; - Home Meds: 1. Motrin 600 mg Oral tab as needed (Last dose: 08/11/2016 18:00) - PMHx: none; - PSHx: Tubal ligation; - Social history: Smoking status: Patient states was never smoker of tobacco. No barriers to communication noted, The patient speaks fluent Icelandic. - Family history: Not pertinent. - : The pt / caregiver states he / she is not on anticoagulants. Home medication list is obtained from the patient. - Exposure Risk Screening:: None identified. Screenin:15 Screening information is obtained from the patient. Fall risk: No risks identified. af2 Assistance ADL's: requires no assistance with activities of daily living. Abuse/DV Screen: The patient / caregiver reports he/she is: not in a situation that causes fear, pain or injury. Nutritional screening: No deficits noted. Advance Directives: Currently, there is no health care proxy. home support is adequate. Assessment: 23:16 General: Appears in no apparent distress, Behavior is cooperative. : Reports burning af2 with urination. 08/12 00:21 General: Appears in no apparent distress, Behavior is cooperative. Respiratory: Airway af2 is patent Respiratory effort is even, unlabored. : Reports burning with urination. Derm: Skin is pink, warm & dry. Vital Signs: 08/11 22:04 BP 139 / 88; Pulse 99; Resp 18; Temp 98.1(O); Pulse Ox 99% on R/A; Weight 90.72 kg (R); lr2 Height 5 ft. 8 in. (172.72 cm) (R); Pain 10/10; 08/12 00:22 BP 139 / 90; Pulse 91; Resp 18 S; Temp 96.9(O); Pulse Ox 99% on R/A; Pain 0/10; af2 08/11 22:04 Body Mass Index 30.41 (90.72 kg, 172.72 cm) lr2 Vitals: 08/11 22:04 Log In Time: August 11, 2016 at 22:02. lr2 ED Course: 22:03 Patient visited by Adilia Abel. lr2 22:03 Patient moved to Waiting lr2 22:05 Sally Marcelino is Private Physician. lr2 22:05 Patient moved to Pre RCE lr2 22:16 Triage Initiated mcp 22:18 Patient visited by Bryanna Hardin, ROBINSON. mcp 22:26 Hallie Lanza,RN is Primary Nurse. sew 22:26 Patient moved to 7 sew 22:27 [facility] ke 22:27 Patient visited by Solis Wade FNP. ke 22:27 Patient visited by Solis Wade FNP. ke 22:57 [facility] Payment Agreement was scanned into People [employer] Remember and attached to record. ks16 22:59 Patient visited by Solis Wade FNP. ke 23:15 The patient / caregiver is instructed regarding the plan of care and ED course. Patient af2 has correct armband on for positive identification. 23:16 No IV's were initiated during this patient's visit. No procedures done that require af2 assistance. Labs drawn. (by ED staff). Sent per order to lab. Urine collected. Clean catch specimen. Urine specimen sent to lab. 23:17 Patient visited by Hallie Lanza RN. af2 23:40 Patient visited by Solis Wade FNP. ke 08/12 00:10 Patient visited by Hallie Lanza RN. af2 00:12 CT ABD & PELVIS: No Contrast Returned. EDMS 00:14 Ji Guzman DO is Attending Physician. cs11 00:14 Sally Marcelino is Referral Physician. cs11 08:03 T-Sheet-- Draft Copy was scanned into [employer] and attached to record. seh Administered Medications: 08/11 23:00 Drug: oxyCODONE-acetaminophen 2 tabs [oxycodone-acetaminophen 5 mg-325 mg tablet (2 af2 tabs)] Route: PO; 08/12 00:12 Follow up: Response: Pain is decreased af2 00:21 Drug: Ciprofloxacin 500 mg [ciprofloxacin 500 mg tablet (1 tabs)] Route: PO; af2 Order Results: Lab Order: CBC; SPEC'M 08/11/16 23:01 Test: WHITE BLOOD COUNT; Value: 7.8; Range: 4.0-10.0; Units: K/mm3; Status: F Test: RED BLOOD COUNT; Value: 4.06; Range: 4.00-5.40; Units: M/mm3; Status: F Test: HEMOGLOBIN; Value: 13.5; Range: 12.0-16.0; Units: g/dl; Status: F Test: HEMATOCRIT; Value: 38.5; Range: 36.0-47.0; Units: %; Status: F Test: MEAN CORPUSCULAR VOLUME; Value: 94.7; Range: 80.0-96.0; Units: fl; Status: F Test: MEAN CORPUSCULAR HEMOGLOBIN; Value: 33.4; Range: 27.0-33.0; Abnormal: Above high normal; Units: pg; Status: F Test: MEAN CORPUSCULAR HGB CONC; Value: 35.2; Range: 32.0-36.5; Units: g/dl; Status: F Test: RED CELL DISTRIBUTION WIDTH; Value: 13.0; Range: 11.5-14.5; Units: %; Status: F Test: PLATELET COUNT, AUTOMATED; Value: 219; Range: 150-450; Units: k/mm3; Status: F Lab Order: [facility] [place]; SPEC'M 08/11/16 23:01 Test: GLUCOSE, FASTING; Value: 77; Range: 70-105; Units: MG/DL; Status: F Test: BLOOD UREA NITROGEN; Value: 15; Range: 7-18; Units: MG/DL; Status: F Test: CREATININE FOR GFR; Value: 0.88; Range: 0.55-1.02; Units: MG/DL; Status: F Test: GLOMERULAR FILTRATION RATE; Value: > 60.0; Range: >60; Status: F Test: SODIUM LEVEL; Value: 141; Range: 136-145; Units: MEQ/L; Status: F Test: POTASSIUM SERUM; Value: 3.7; Range: 3.5-5.1; Units: MEQ/L; Status: F Test: CHLORIDE LEVEL; Value: 104; Range: 98-107; Units: MEQ/L; Status: F Test: CARBON DIOXIDE LEVEL; Value: 28; Range: 21-32; Units: MEQ/L; Status: F Test: ANION GAP; Value: 9; Range: 8-16; Units: MEQ/L; Status: F Test: CALCIUM LEVEL; Value: 8.8; Range: 8.5-10.1; Units: MG/DL; Status: F Test Note: ; Units are mL/min/1.73 m2 Chronic Kidney Disease Staging per NKF: Stage I & II GFR >=60 Normal to Mildly Decreased Stage III GFR 30-59 Moderately Decreased Stage IV GFR 15-29 Severely Decreased Stage V GFR <15 Very Little GFR Left ESRD GFR <15 on TIMBER INSPECTOR Lab Order: ; SPEC'08/11/16 23:01 Test: APPEARANCE, URINE; Value: HAZY; Range: CLEAR; Status: F Test: COLOR, URINE; Value: YELLOW; Range: YELLOW; Status: F Test: PH,URINE; Value: 5.0; Range: 5.0-9.0; Units: UNITS; Status: F Test: SPECIFIC GRAVITY URINE AUTO; Value: 1.026; Range: 1.002-1.035; Status: F Test: PROTEIN, URINE AUTO; Value: NEGATIVE; Range: NEGATIVE; Units: mg/dL; Status: F Test: GLUCOSE, URINE (UA) AUTO; Value: NEGATIVE; Range: NEGATIVE; Units: mg/dL; Status: F Test: KETONE, URINE AUTO; Value: NEGATIVE; Range: NEGATIVE; Units: mg/dL; Status: F Test: UROBILINOGEN, URINE AUTO; Value: 0.2; Range: 0.0-2.0; Units: mg/dL; Status: F Test: BILIRUBIN, URINE AUTO; Value: NEGATIVE; Range: NEGATIVE; Status: F Test: NITRITE, URINE AUTO; Value: NEGATIVE; Range: NEGATIVE; Status: F Test: LEUKOCYTE ESTERASE, URINE AUTO; Value: 3+; Range: NEGATIVE; Abnormal: Above high normal; Status: F Test: BLOOD, URINE BLOOD; Value: 2+; Range: NEGATIVE; Abnormal: Above high normal; Status: F Test: WBC, URINE AUTO; Value: 83; Range: 0-3; Abnormal: Above high normal; Units: /HPF; Status: F Test: RBC, URINE AUTO; Value: 11; Range: 0-3; Abnormal: Above high normal; Units: /HPF; Status: F Test: BACTERIA, URINE AUTO; Value: 2+; Range: NEGATIVE; Abnormal: Above high normal; Status: F Test: SQUAMOUS EPITHELIAL CELL UR AU; Value: 6; Range: 0-6; Units: /HPF; Status: F Test: MUCUS, URINE; Value: SMALL; Range: NEGATIVE; Status: F Test: HYALINE CAST, URINE AUTO; Value: 0; Range: 0-1; Units: /LPF; Status: F Lab Order: Urine Culture; SPEC'M 08/11/16 23:01 Test: URINE CULTURE; Value: <EXTERNAL COMMENT eCWMed> FULL REPORT IN LAB NOTES (eCW and Medent).; Status: F Test: URINE CULTURE; Value: ORGANISM 1: ESCHERICHIA COLI; Status: F Test: URINE CULTURE; Value: ESCHERICHIA COLI; Status: F Test: URINE CULTURE; Value: COLONY COUNT CFU/ml >100,000; Status: F Test: URINE CULTURE; Value: GRAM NEG SENSI - VITEK 80; Status: F Test: URINE CULTURE; Value: Method: VIT2; Status: F Test: URINE CULTURE; Value: EXTD BRD SPCTRM BETA LACTAMASE -; Status: F Test: URINE CULTURE; Value: TRIMETHOPRIM/SULFAMETHOXAZOLE >=320 R; Status: F Test: URINE CULTURE; Value: AMPICILLIN >=32 R; Status: F Test: URINE CULTURE; Value: GENTAMICIN >=16 R; Status: F Test: URINE CULTURE; Value: NITROFURANTOIN <=16 S; Status: F Test: URINE CULTURE; Value: CEFAZOLIN <=4 S; Status: F Test: URINE CULTURE; Value: LEVOFLOXACIN >=8 R; Status: F Test: URINE CULTURE; Value: TOBRAMYCIN 8 I; Status: F Test: URINE CULTURE; Value: CEFTRIAXONE <=1 S; Status: F Test: URINE CULTURE; Value: CEFTAZIDIME <=1 S; Status: F Test: URINE CULTURE; Value: AMPICILLIN/SULBACTAM >=32 R; Status: F Test: URINE CULTURE; Value: PIPERACILLIN/TAZOBACTAM <=4 S; Status: F Test: URINE CULTURE; Value: AZTREONAM <=1 S; Status: F Test: URINE CULTURE; Value: ERTAPENEM <=0.5 S; Status: F Test: URINE CULTURE; Value: MEROPENEM <=0.25 S; Status: F Test: URINE CULTURE; Value: TIGECYCLINE <=0.5 S; Status: F Test: URINE CULTURE; Value: CEFEPIME <=1 S; Status: F Radiology Order: CT ABD & PELVIS: No Contrast Test: CT ABD & PELVIS: No Contrast REASON FOR EXAMINATION: pelvic pain post operative; ; CT of the abdomen and pelvis without contrast; Clinical statement: Pain, pelvic.; Technique: Multiple axial CT images were obtained from the base of the lungs to the floor of the pelv; is utilizing 5 mm axial slices without administration of contrast. Coronal and sagittal reconstructio; ns were also obtained.; No comparison is available.; Findings:; Chest: The visualized lung bases are clear.; Abdomen: There are several tiny pockets of free air under the diaphragm. This is seen both under the; right and left diaphragm, as well as within the gallbladder fossa. This is consistent with postsurgic; al changes. The kidneys are normal in size bilaterally. There is no evidence of hydronephrosis or nep; hrolithiasis. The liver, spleen, pancreas, gallbladder and adrenal glands are unremarkable. The aorta; demonstrates normal caliber and contour. There is no abdominal lymphadenopathy or ascites.; Pelvis: There is mild sigmoid diverticulosis without evidence of diverticulitis. No obstructive or in; flammatory bowel are noted. The appendix is normal. The urinary bladder is within normal limits. Ther; e is no pelvic lymphadenopathy or ascites. The other pelvic structures appear unremarkable.; Bones: There are no suspicious osseous abnormalities seen.; Impression:; 1. No focal acute findings to explain the patient's pain.; 2. Tiny pockets of free air, which are iatrogenic in nature.; 3. No evidence of hydronephrosis or nephrolithiasis.; 4. Mild sigmoid diverticulosis without evidence of diverticulitis. No obstructive or inflammatory bow; el changes.; 5. The uterus and adnexa appear grossly unremarkable.; ER physician was notified of these findings at 12:06 AM on 08/12/2015.; ; Outcome: 00:14 Discharge ordered by Provider. cs11 00:22 Discharge Assessment: Patient awake, alert and oriented x 3. No cognitive and/or af2 functional deficits noted. Patient verbalized understanding of disposition instructions. patient administered narcotics - yes. Pt provided with safe discharge. The following High Risk Discharge criteria are identified: None. Discharged to home ambulatory. Condition: stable. Discharge instructions given to patient, Instructed on discharge instructions, follow up and referral plans. medication usage, no driving heavy equipment, Demonstrated understanding of instructions, medications, Pt was receptive of discharge instructions/ teaching. CT Study completed. Property :Personal belongings accompany Pt. 00:23 Patient left the ED. af2 Addendum: 08/16/2016 15:32 Narrative: Urine culture results reviewed with Dr. Alston and Rx to be changed to kcs Macrobid 100 mg po BID x 7 days. Patient contacted and requests [employer] on [employer]. Rx called in. Signatures: Dispatcher [employer] EDYue Cruz RN RN Bryanna Phan RN RN mcp Elsner, Karl, QUICK SKETCH ARTIST Candice Latham Craig, DO DO cs11 Hallie Lanza RN RN af2 Janell Lezama, Reg Reg ks16 Candice Adan, Adilia lr2 MTDD
--- NOTE | 2016-08-16 15:36 | EDDOCDS ---
Physician Documentation [facility] Name: Valencia Pierce Age: 36 yrs Sex: Female : 1980 Arrival Date: 08/11/2016 Time: 22:02 Bed 7 Private MD: Sally Marcelino Abdul Disposition: 08/12/16 00:14 Discharged to Home/Self Care. Impression: Urinary tract infection, site not specified. - Condition is Stable. - Prescriptions for Cipro 500 mg Oral Tablet - take 1 tablet by ORAL route every 12 hours; 10 tablet. - Medication Reconciliation, Local Pharmacy Hours form. - Follow up: Sally Marcelino; When: Call to arrange an appointment; Reason: Recheck today's complaints. - Problem is new. - Symptoms have improved. Historical: - Allergies: PENICILLINS; - Home Meds: 1. Motrin 600 mg Oral tab as needed (Last dose: 08/11/2016 18:00) - PMHx: none; - PSHx: Tubal ligation; - Social history: Smoking status: Patient states was never smoker of tobacco. No barriers to communication noted, The patient speaks fluent Sinhala. - Family history: Not pertinent. - : The pt / caregiver states he / she is not on anticoagulants. Home medication list is obtained from the patient. - Exposure Risk Screening:: None identified. 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 8 in. (172.72 cm) (R); Pain 10/10; 08/12 00:22 BP 139 / 90; Pulse 91; Resp 18 S; Temp 96.9(O); Pulse Ox 99% on R/A; Pain 0/10; af2 08/11 22:04 Body Mass Index 30.41 (90.72 kg, 172.72 cm) lr2 MDM: 08/11 22:40 oxyCODONE-acetaminophen 5 mg-325 mg 2 tabs PO once ordered. ke 22:41 CBC Ordered. EDMS 22:41 BMP Ordered. EDMS 22:41 UA Ordered. EDMS 22:41 Urine Culture Ordered. EDMS 22:41 CT ABD & PELVIS: No Contrast Ordered. EDMS 22:56 Financial registration complete. ks 22:57 [facility] Payment Agreement was scanned into HSTYLE and attached to record. ks 23:17 CBC Reviewed. ke 23:17 UA Reviewed. ke 23:49 BMP Reviewed. ke 23:49 Ciprofloxacin 500 mg PO once ordered. 08/12 00:13 CT ABD & PELVIS: No Contrast Reviewed. [facility] 08:03 T-Sheet-- Draft Copy was scanned into HSTYLE and attached to record. [facility] Administered Medications: 08/11 23:00 Drug: oxyCODONE-acetaminophen 2 tabs [oxycodone-acetaminophen 5 mg-325 mg tablet (2 af2 tabs)] Route: PO; 08/12 00:12 Follow up: Response: Pain is decreased af2 00:21 Drug: Ciprofloxacin 500 mg [ciprofloxacin 500 mg tablet (1 tabs)] Route: PO; af2 Signatures: Dispatcher [employer] Bryanna Enciso RN RN mcp Elsner, Karl, GRAPHIC ARTS TECHNICIAN GRAPHIC ARTS TECHNICIAN Ji Maza, DO cs11 Hallie Lanza RN RN af2 Janell Lezama, Reg Reg ks16 Candice Adan [facility] The chart was reviewed and I authenticate all verbal orders and agree with the evaluation and treatment provided.Attachments: 08/11 21:57 [facility] Payment Agreement 08/12 08:03 T-Sheet-- Draft Copy [facility] Chart Complete MTDD
--- NOTE | 2016-08-16 15:36 | EDDOCDS ---
Nurse's Notes [facility] Name: Valecnia Pierce Age: 36 yrs Sex: Female : 1980 Arrival Date: 08/11/2016 Time: 22:02 Bed 7 Private MD: Sally Marcelino Abdul Diagnosis: Urinary tract infection, site not specified Presentation: 08/11 22:15 Presenting complaint: Patient states: Had tubes tied on --feels like she has a [facility] bad urinary tract infection. Adult Sepsis Screening: The patient does not have new or worsening altered mentation. Patient's respiratory rate is less than 22. Systolic blood pressure is greater than 100. Patient has a qSOFA score of 0- Negative Sepsis Screen. Suicide/Homicide risk assessment- the patient denies having any suicidal and/or homicidal ideations and does not present with any other emotional, behavioral or mental health complaints. Status: Patient is not a alarm service technician or dependent. Transition of care: patient was not received from another setting of care. 22:15 Acuity: RUTH Level 4 [facility] 22:15 Method Of Arrival: Walkin/Carried/Asstd [facility] Triage Assessment: 22:17 General: Appears uncomfortable, Behavior is cooperative. Pain: Location: right lower mcp quadrant and left lower quadrant Pain currently is 10 out of 10 on a pain scale. HIV screening NA for this visit Offered previously. Neurological: No deficits noted. Respiratory: No deficits noted. : Reports burning with urination pain with urination urinary frequency. Derm: Skin is pink, warm & dry. MANAGER SKILLED: 22:17 3, Living 1, LMP 07/25/2016 [facility] Historical: - Allergies: PENICILLINS; - Home Meds: 1. Motrin 600 mg Oral tab as needed (Last dose: 08/11/2016 18:00) - PMHx: none; - PSHx: Tubal ligation; - Social history: Smoking status: Patient states was never smoker of tobacco. No barriers to communication noted, The patient speaks fluent Chinese. - Family history: Not pertinent. - : The pt / caregiver states he / she is not on anticoagulants. Home medication list is obtained from the patient. - Exposure Risk Screening:: None identified. Screenin:15 Screening information is obtained from the patient. Fall risk: No risks identified. af2 Assistance ADL's: requires no assistance with activities of daily living. Abuse/DV Screen: The patient / caregiver reports he/she is: not in a situation that causes fear, pain or injury. Nutritional screening: No deficits noted. Advance Directives: Currently, there is no health care proxy. home support is adequate. Assessment: 23:16 General: Appears in no apparent distress, Behavior is cooperative. : Reports burning af2 with urination. 08/12 00:21 General: Appears in no apparent distress, Behavior is cooperative. Respiratory: Airway af2 is patent Respiratory effort is even, unlabored. : Reports burning with urination. Derm: Skin is pink, warm & dry. Vital Signs: 08/11 22:04 BP 139 / 88; Pulse 99; Resp 18; Temp 98.1(O); Pulse Ox 99% on R/A; Weight 90.72 kg (R); lr2 Height 5 ft. 8 in. (172.72 cm) (R); Pain 10/10; 08/12 00:22 BP 139 / 90; Pulse 91; Resp 18 S; Temp 96.9(O); Pulse Ox 99% on R/A; Pain 0/10; af2 08/11 22:04 Body Mass Index 30.41 (90.72 kg, 172.72 cm) lr2 Vitals: 08/11 22:04 Log In Time: August 11, 2016 at 22:02. lr2 ED Course: 22:03 Patient visited by Adilia Abel. lr2 22:03 Patient moved to Waiting lr2 22:05 Sally Marcelino is Private Physician. lr2 22:05 Patient moved to Pre RCE lr2 22:16 Triage Initiated mcp 22:18 Patient visited by Bryanna Hardin, ROBINSON. mcp 22:26 Hallie Lanza,RN is Primary Nurse. sew 22:26 Patient moved to 7 sew 22:27 [facility] Wade [facility]. ke 22:27 Patient visited by Solis Wade FNP. ke 22:27 Patient visited by Solis Wade FNP. ke 22:57 PENDING SALE TO [facility] Payment Agreement was scanned into Read[employer] and attached to record. ks16 22:59 Patient visited by Solis Wade FNP. ke 23:15 The patient / caregiver is instructed regarding the plan of care and ED course. Patient af2 has correct armband on for positive identification. 23:16 No IV's were initiated during this patient's visit. No procedures done that require af2 assistance. Labs drawn. (by ED staff). Sent per order to lab. Urine collected. Clean catch specimen. Urine specimen sent to lab. 23:17 Patient visited by Hallie Lanza RN. af2 23:40 Patient visited by Solis Wade FNP. ke 08/12 00:10 Patient visited by Hallie Lanza RN. af2 00:12 CT ABD & PELVIS: No Contrast Returned. EDMS 00:14 Ji Guzman DO is Attending Physician. cs11 00:14 Sally Marcelino is Referral Physician. cs11 08:03 T-Sheet-- Draft Copy was scanned into Read[employer] and attached to record. seh Administered Medications: 08/11 23:00 Drug: oxyCODONE-acetaminophen 2 tabs [oxycodone-acetaminophen 5 mg-325 mg tablet (2 af2 tabs)] Route: PO; 08/12 00:12 Follow up: Response: Pain is decreased af2 00:21 Drug: Ciprofloxacin 500 mg [ciprofloxacin 500 mg tablet (1 tabs)] Route: PO; af2 Order Results: Lab Order: CBC; SPEC'M 08/11/16 23:01 Test: WHITE BLOOD COUNT; Value: 7.8; Range: 4.0-10.0; Units: K/mm3; Status: F Test: RED BLOOD COUNT; Value: 4.06; Range: 4.00-5.40; Units: M/mm3; Status: F Test: HEMOGLOBIN; Value: 13.5; Range: 12.0-16.0; Units: g/dl; Status: F Test: HEMATOCRIT; Value: 38.5; Range: 36.0-47.0; Units: %; Status: F Test: MEAN CORPUSCULAR VOLUME; Value: 94.7; Range: 80.0-96.0; Units: fl; Status: F Test: MEAN CORPUSCULAR HEMOGLOBIN; Value: 33.4; Range: 27.0-33.0; Abnormal: Above high normal; Units: pg; Status: F Test: MEAN CORPUSCULAR HGB CONC; Value: 35.2; Range: 32.0-36.5; Units: g/dl; Status: F Test: RED CELL DISTRIBUTION WIDTH; Value: 13.0; Range: 11.5-14.5; Units: %; Status: F Test: PLATELET COUNT, AUTOMATED; Value: 219; Range: 150-450; Units: k/mm3; Status: F Lab Order: [facility]; SPEC'M 08/11/16 23:01 Test: GLUCOSE, FASTING; Value: 77; Range: 70-105; Units: MG/DL; Status: F Test: BLOOD UREA NITROGEN; Value: 15; Range: 7-18; Units: MG/DL; Status: F Test: CREATININE FOR GFR; Value: 0.88; Range: 0.55-1.02; Units: MG/DL; Status: F Test: GLOMERULAR FILTRATION RATE; Value: > 60.0; Range: >60; Status: F Test: SODIUM LEVEL; Value: 141; Range: 136-145; Units: MEQ/L; Status: F Test: POTASSIUM SERUM; Value: 3.7; Range: 3.5-5.1; Units: MEQ/L; Status: F Test: CHLORIDE LEVEL; Value: 104; Range: 98-107; Units: MEQ/L; Status: F Test: CARBON DIOXIDE LEVEL; Value: 28; Range: 21-32; Units: MEQ/L; Status: F Test: ANION GAP; Value: 9; Range: 8-16; Units: MEQ/L; Status: F Test: CALCIUM LEVEL; Value: 8.8; Range: 8.5-10.1; Units: MG/DL; Status: F Test Note: ; Units are mL/min/1.73 m2 Chronic Kidney Disease Staging per NKF: Stage I & II GFR >=60 Normal to Mildly Decreased Stage III GFR 30-59 Moderately Decreased Stage IV GFR 15-29 Severely Decreased Stage V GFR <15 Very Little GFR Left ESRD GFR <15 on J[employer] USER INTERFACE DEVELOPER Lab Order: ; SPEC'08/11/16 23:01 Test: APPEARANCE, URINE; Value: HAZY; Range: CLEAR; Status: F Test: COLOR, URINE; Value: YELLOW; Range: YELLOW; Status: F Test: PH,URINE; Value: 5.0; Range: 5.0-9.0; Units: UNITS; Status: F Test: SPECIFIC GRAVITY URINE AUTO; Value: 1.026; Range: 1.002-1.035; Status: F Test: PROTEIN, URINE AUTO; Value: NEGATIVE; Range: NEGATIVE; Units: mg/dL; Status: F Test: GLUCOSE, URINE (UA) AUTO; Value: NEGATIVE; Range: NEGATIVE; Units: mg/dL; Status: F Test: KETONE, URINE AUTO; Value: NEGATIVE; Range: NEGATIVE; Units: mg/dL; Status: F Test: UROBILINOGEN, URINE AUTO; Value: 0.2; Range: 0.0-2.0; Units: mg/dL; Status: F Test: BILIRUBIN, URINE AUTO; Value: NEGATIVE; Range: NEGATIVE; Status: F Test: NITRITE, URINE AUTO; Value: NEGATIVE; Range: NEGATIVE; Status: F Test: LEUKOCYTE ESTERASE, URINE AUTO; Value: 3+; Range: NEGATIVE; Abnormal: Above high normal; Status: F Test: BLOOD, URINE BLOOD; Value: 2+; Range: NEGATIVE; Abnormal: Above high normal; Status: F Test: WBC, URINE AUTO; Value: 83; Range: 0-3; Abnormal: Above high normal; Units: /HPF; Status: F Test: RBC, URINE AUTO; Value: 11; Range: 0-3; Abnormal: Above high normal; Units: /HPF; Status: F Test: BACTERIA, URINE AUTO; Value: 2+; Range: NEGATIVE; Abnormal: Above high normal; Status: F Test: SQUAMOUS EPITHELIAL CELL UR AU; Value: 6; Range: 0-6; Units: /HPF; Status: F Test: MUCUS, URINE; Value: SMALL; Range: NEGATIVE; Status: F Test: HYALINE CAST, URINE AUTO; Value: 0; Range: 0-1; Units: /LPF; Status: F Lab Order: Urine Culture; SPEC'M 08/11/16 23:01 Test: URINE CULTURE; Value: <EXTERNAL COMMENT eCWMed> FULL REPORT IN LAB NOTES (eCW and Medent).; Status: F Test: URINE CULTURE; Value: ORGANISM 1: ESCHERICHIA COLI; Status: F Test: URINE CULTURE; Value: ESCHERICHIA COLI; Status: F Test: URINE CULTURE; Value: COLONY COUNT CFU/ml >100,000; Status: F Test: URINE CULTURE; Value: GRAM NEG SENSI - VITEK 80; Status: F Test: URINE CULTURE; Value: Method: VIT2; Status: F Test: URINE CULTURE; Value: EXTD BRD SPCTRM BETA LACTAMASE -; Status: F Test: URINE CULTURE; Value: TRIMETHOPRIM/SULFAMETHOXAZOLE >=320 R; Status: F Test: URINE CULTURE; Value: AMPICILLIN >=32 R; Status: F Test: URINE CULTURE; Value: GENTAMICIN >=16 R; Status: F Test: URINE CULTURE; Value: NITROFURANTOIN <=16 S; Status: F Test: URINE CULTURE; Value: CEFAZOLIN <=4 S; Status: F Test: URINE CULTURE; Value: LEVOFLOXACIN >=8 R; Status: F Test: URINE CULTURE; Value: TOBRAMYCIN 8 I; Status: F Test: URINE CULTURE; Value: CEFTRIAXONE <=1 S; Status: F Test: URINE CULTURE; Value: CEFTAZIDIME <=1 S; Status: F Test: URINE CULTURE; Value: AMPICILLIN/SULBACTAM >=32 R; Status: F Test: URINE CULTURE; Value: PIPERACILLIN/TAZOBACTAM <=4 S; Status: F Test: URINE CULTURE; Value: AZTREONAM <=1 S; Status: F Test: URINE CULTURE; Value: ERTAPENEM <=0.5 S; Status: F Test: URINE CULTURE; Value: MEROPENEM <=0.25 S; Status: F Test: URINE CULTURE; Value: TIGECYCLINE <=0.5 S; Status: F Test: URINE CULTURE; Value: CEFEPIME <=1 S; Status: F Radiology Order: CT ABD & PELVIS: No Contrast Test: CT ABD & PELVIS: No Contrast REASON FOR EXAMINATION: pelvic pain post operative; ; CT of the abdomen and pelvis without contrast; Clinical statement: Pain, pelvic.; Technique: Multiple axial CT images were obtained from the base of the lungs to the floor of the pelv; is utilizing 5 mm axial slices without administration of contrast. Coronal and sagittal reconstructio; ns were also obtained.; No comparison is available.; Findings:; Chest: The visualized lung bases are clear.; Abdomen: There are several tiny pockets of free air under the diaphragm. This is seen both under the; right and left diaphragm, as well as within the gallbladder fossa. This is consistent with postsurgic; al changes. The kidneys are normal in size bilaterally. There is no evidence of hydronephrosis or nep; hrolithiasis. The liver, spleen, pancreas, gallbladder and adrenal glands are unremarkable. The aorta; demonstrates normal caliber and contour. There is no abdominal lymphadenopathy or ascites.; Pelvis: There is mild sigmoid diverticulosis without evidence of diverticulitis. No obstructive or in; flammatory bowel are noted. The appendix is normal. The urinary bladder is within normal limits. Ther; e is no pelvic lymphadenopathy or ascites. The other pelvic structures appear unremarkable.; Bones: There are no suspicious osseous abnormalities seen.; Impression:; 1. No focal acute findings to explain the patient's pain.; 2. Tiny pockets of free air, which are iatrogenic in nature.; 3. No evidence of hydronephrosis or nephrolithiasis.; 4. Mild sigmoid diverticulosis without evidence of diverticulitis. No obstructive or inflammatory bow; el changes.; 5. The uterus and adnexa appear grossly unremarkable.; ER physician was notified of these findings at 12:06 AM on 08/12/2015.; ; Outcome: 00:14 Discharge ordered by Provider. cs11 00:22 Discharge Assessment: Patient awake, alert and oriented x 3. No cognitive and/or af2 functional deficits noted. Patient verbalized understanding of disposition instructions. patient administered narcotics - yes. Pt provided with safe discharge. The following High Risk Discharge criteria are identified: None. Discharged to home ambulatory. Condition: stable. Discharge instructions given to patient, Instructed on discharge instructions, follow up and referral plans. medication usage, no driving heavy equipment, Demonstrated understanding of instructions, medications, Pt was receptive of discharge instructions/ teaching. CT Study completed. Property :Personal belongings accompany Pt. 00:23 Patient left the ED. af2 Addendum: 08/16/2016 15:32 Narrative: Urine culture results reviewed with Dr. Alston and Rx to be changed to kcs Macrobid 100 mg po BID x 7 days. Patient contacted and requests Daptiv on [place]. Rx called in. Signatures: Dispatcher [employer] EDYue Cruz RN RN Bryanna Phan RN RN mcp Elsner, Karl, FUGITIVE DETECTIVE Candice Latham Craig, DO DO cs11 Hallie Lanza RN RN af2 Janell Lezama, Reg Reg ks16 Candice Adan, Adilia lr2 Chart Complete MTDD
--- NOTE | 2016-08-16 15:36 | EDDOCDS ---
Physician Documentation [facility] Name: Valencia Pierce Age: 36 yrs Sex: Female : 1980 Arrival Date: 08/11/2016 Time: 22:02 Bed 7 Private MD: Sally Marcelino Abdul Disposition: 08/12/16 00:14 Discharged to Home/Self Care. Impression: Urinary tract infection, site not specified. - Condition is Stable. - Prescriptions for Cipro 500 mg Oral Tablet - take 1 tablet by ORAL route every 12 hours; 10 tablet. - Medication Reconciliation, Local Pharmacy Hours form. - Follow up: Sally Marcelino; When: Call to arrange an appointment; Reason: Recheck today's complaints. - Problem is new. - Symptoms have improved. Historical: - Allergies: PENICILLINS; - Home Meds: 1. Motrin 600 mg Oral tab as needed (Last dose: 08/11/2016 18:00) - PMHx: none; - PSHx: Tubal ligation; - Social history: Smoking status: Patient states was never smoker of tobacco. No barriers to communication noted, The patient speaks fluent Kazakh. - Family history: Not pertinent. - : The pt / caregiver states he / she is not on anticoagulants. Home medication list is obtained from the patient. - Exposure Risk Screening:: None identified. SENIOR POLICY ANALYST: 08/11 22:17 3, Living 1, LMP 07/25/2016 mcp Vital Signs: 22:04 BP 139 / 88; Pulse 99; Resp 18; Temp 98.1(O); Pulse Ox 99% on R/A; Weight 90.72 kg / lr2 200 lbs (R); Height 5 ft. 8 in. (172.72 cm) (R); Pain 10/10; 08/12 00:22 BP 139 / 90; Pulse 91; Resp 18 S; Temp 96.9(O); Pulse Ox 99% on R/A; Pain 0/10; af2 08/11 22:04 Body Mass Index 30.41 (90.72 kg, 172.72 cm) lr2 MDM: 08/11 22:40 oxyCODONE-acetaminophen 5 mg-325 mg 2 tabs PO once ordered. ke 22:41 CBC Ordered. EDMS 22:41 BMP Ordered. EDMS 22:41 UA Ordered. EDMS 22:41 Urine Culture Ordered. EDMS 22:41 CT ABD & PELVIS: No Contrast Ordered. EDMS 22:56 Financial registration complete. ks 22:57 [facility] Payment Agreement was scanned into [employer] and attached to record. ks 23:17 CBC Reviewed. ke 23:17 UA Reviewed. ke 23:49 BMP Reviewed. ke 23:49 Ciprofloxacin 500 mg PO once ordered. 08/12 00:13 CT ABD & PELVIS: No Contrast Reviewed. [facility] 08:03 T-Sheet-- Draft Copy was scanned into [employer] and attached to record. [facility] Administered Medications: 08/11 23:00 Drug: oxyCODONE-acetaminophen 2 tabs [oxycodone-acetaminophen 5 mg-325 mg tablet (2 af2 tabs)] Route: PO; 08/12 00:12 Follow up: Response: Pain is decreased af2 00:21 Drug: Ciprofloxacin 500 mg [ciprofloxacin 500 mg tablet (1 tabs)] Route: PO; af2 Signatures: Dispatcher [employer] Bryanna Enciso RN RN mcp Elsner, Karl, UTILITY INSPECTOR UTILITY INSPECTOR Ji Maza, DO cs11 Hallie Lanza RN RN af2 Janell Lezama, Reg Reg ks16 Candice Adan [facility] The chart was reviewed and I authenticate all verbal orders and agree with the evaluation and treatment provided.Attachments: 08/11 21:57 [facility] Payment Agreement 08/12 08:03 T-Sheet-- Draft Copy [facility] Chart Complete MTDD
--- NOTE | 2016-08-16 15:37 | EDDOCDS ---
Nurse's Notes [facility] Name: Valencia Pierce Age: 36 yrs Sex: Female : 1980 Arrival Date: 08/11/2016 Time: 22:02 Bed 7 Private MD: Sally Marcelino Abdul Diagnosis: Urinary tract infection, site not specified Presentation: 08/11 22:15 Presenting complaint: Patient states: Had tubes tied on --feels like she has a [facility] bad urinary tract infection. Adult Sepsis Screening: The patient does not have new or worsening altered mentation. Patient's respiratory rate is less than 22. Systolic blood pressure is greater than 100. Patient has a qSOFA score of 0- Negative Sepsis Screen. Suicide/Homicide risk assessment- the patient denies having any suicidal and/or homicidal ideations and does not present with any other emotional, behavioral or mental health complaints. Status: Patient is not a biomedical service engineer or dependent. Transition of care: patient was not received from another setting of care. 22:15 Acuity: RUTH Level 4 [facility] 22:15 Method Of Arrival: Walkin/Carried/Asstd [facility] Triage Assessment: 22:17 General: Appears uncomfortable, Behavior is cooperative. Pain: Location: right lower mcp quadrant and left lower quadrant Pain currently is 10 out of 10 on a pain scale. HIV screening NA for this visit Offered previously. Neurological: No deficits noted. Respiratory: No deficits noted. : Reports burning with urination pain with urination urinary frequency. Derm: Skin is pink, warm & dry. FIELD TECH: 22:17 3, Living 1, LMP 07/25/2016 [facility] Historical: - Allergies: PENICILLINS; - Home Meds: 1. Motrin 600 mg Oral tab as needed (Last dose: 08/11/2016 18:00) - PMHx: none; - PSHx: Tubal ligation; - Social history: Smoking status: Patient states was never smoker of tobacco. No barriers to communication noted, The patient speaks fluent Hebrew. - Family history: Not pertinent. - : The pt / caregiver states he / she is not on anticoagulants. Home medication list is obtained from the patient. - Exposure Risk Screening:: None identified. Screenin:15 Screening information is obtained from the patient. Fall risk: No risks identified. af2 Assistance ADL's: requires no assistance with activities of daily living. Abuse/DV Screen: The patient / caregiver reports he/she is: not in a situation that causes fear, pain or injury. Nutritional screening: No deficits noted. Advance Directives: Currently, there is no health care proxy. home support is adequate. Assessment: 23:16 General: Appears in no apparent distress, Behavior is cooperative. : Reports burning af2 with urination. 08/12 00:21 General: Appears in no apparent distress, Behavior is cooperative. Respiratory: Airway af2 is patent Respiratory effort is even, unlabored. : Reports burning with urination. Derm: Skin is pink, warm & dry. Vital Signs: 08/11 22:04 BP 139 / 88; Pulse 99; Resp 18; Temp 98.1(O); Pulse Ox 99% on R/A; Weight 90.72 kg (R); lr2 Height 5 ft. 8 in. (172.72 cm) (R); Pain 10/10; 08/12 00:22 BP 139 / 90; Pulse 91; Resp 18 S; Temp 96.9(O); Pulse Ox 99% on R/A; Pain 0/10; af2 08/11 22:04 Body Mass Index 30.41 (90.72 kg, 172.72 cm) lr2 Vitals: 08/11 22:04 Log In Time: August 11, 2016 at 22:02. lr2 ED Course: 22:03 Patient visited by Adilia Abel. lr2 22:03 Patient moved to Waiting lr2 22:05 Sally Marcelino is Private Physician. lr2 22:05 Patient moved to Pre RCE lr2 22:16 Triage Initiated mcp 22:18 Patient visited by Bryanna Hardin, ROBINSON. mcp 22:26 Hallie Lanza,RN is Primary Nurse. sew 22:26 Patient moved to 7 sew 22:27 [facility] ke 22:27 Patient visited by Solis Wade FNP. ke 22:27 Patient visited by Solis Wade FNP. ke 22:57 [facility] Payment Agreement was scanned into [employer] and attached to record. ks16 22:59 Patient visited by Solis Wade FNP. ke 23:15 The patient / caregiver is instructed regarding the plan of care and ED course. Patient af2 has correct armband on for positive identification. 23:16 No IV's were initiated during this patient's visit. No procedures done that require af2 assistance. Labs drawn. (by ED staff). Sent per order to lab. Urine collected. Clean catch specimen. Urine specimen sent to lab. 23:17 Patient visited by Hallie Lanza RN. af2 23:40 Patient visited by Solis Wade FNP. ke 08/12 00:10 Patient visited by Hallie Lanza RN. af2 00:12 CT ABD & PELVIS: No Contrast Returned. EDMS 00:14 Ji Guzman DO is Attending Physician. cs11 00:14 Sally Marcelino is Referral Physician. cs11 08:03 T-Sheet-- Draft Copy was scanned into [employer] and attached to record. seh Administered Medications: 08/11 23:00 Drug: oxyCODONE-acetaminophen 2 tabs [oxycodone-acetaminophen 5 mg-325 mg tablet (2 af2 tabs)] Route: PO; 08/12 00:12 Follow up: Response: Pain is decreased af2 00:21 Drug: Ciprofloxacin 500 mg [ciprofloxacin 500 mg tablet (1 tabs)] Route: PO; af2 Order Results: Lab Order: CBC; SPEC'M 08/11/16 23:01 Test: WHITE BLOOD COUNT; Value: 7.8; Range: 4.0-10.0; Units: K/mm3; Status: F Test: RED BLOOD COUNT; Value: 4.06; Range: 4.00-5.40; Units: M/mm3; Status: F Test: HEMOGLOBIN; Value: 13.5; Range: 12.0-16.0; Units: g/dl; Status: F Test: HEMATOCRIT; Value: 38.5; Range: 36.0-47.0; Units: %; Status: F Test: MEAN CORPUSCULAR VOLUME; Value: 94.7; Range: 80.0-96.0; Units: fl; Status: F Test: MEAN CORPUSCULAR HEMOGLOBIN; Value: 33.4; Range: 27.0-33.0; Abnormal: Above high normal; Units: pg; Status: F Test: MEAN CORPUSCULAR HGB CONC; Value: 35.2; Range: 32.0-36.5; Units: g/dl; Status: F Test: RED CELL DISTRIBUTION WIDTH; Value: 13.0; Range: 11.5-14.5; Units: %; Status: F Test: PLATELET COUNT, AUTOMATED; Value: 219; Range: 150-450; Units: k/mm3; Status: F Lab Order: [facility]; SPEC'M 08/11/16 23:01 Test: GLUCOSE, FASTING; Value: 77; Range: 70-105; Units: MG/DL; Status: F Test: BLOOD UREA NITROGEN; Value: 15; Range: 7-18; Units: MG/DL; Status: F Test: CREATININE FOR GFR; Value: 0.88; Range: 0.55-1.02; Units: MG/DL; Status: F Test: GLOMERULAR FILTRATION RATE; Value: > 60.0; Range: >60; Status: F Test: SODIUM LEVEL; Value: 141; Range: 136-145; Units: MEQ/L; Status: F Test: POTASSIUM SERUM; Value: 3.7; Range: 3.5-5.1; Units: MEQ/L; Status: F Test: CHLORIDE LEVEL; Value: 104; Range: 98-107; Units: MEQ/L; Status: F Test: CARBON DIOXIDE LEVEL; Value: 28; Range: 21-32; Units: MEQ/L; Status: F Test: ANION GAP; Value: 9; Range: 8-16; Units: MEQ/L; Status: F Test: CALCIUM LEVEL; Value: 8.8; Range: 8.5-10.1; Units: MG/DL; Status: F Test Note: ; Units are mL/min/1.73 m2 Chronic Kidney Disease Staging per NKF: Stage I & II GFR >=60 Normal to Mildly Decreased Stage III GFR 30-59 Moderately Decreased Stage IV GFR 15-29 Severely Decreased Stage V GFR <15 Very Little GFR Left ESRD GFR <15 on [facility] Lab Order: ; SPEC'08/11/16 23:01 Test: APPEARANCE, URINE; Value: HAZY; Range: CLEAR; Status: F Test: COLOR, URINE; Value: YELLOW; Range: YELLOW; Status: F Test: PH,URINE; Value: 5.0; Range: 5.0-9.0; Units: UNITS; Status: F Test: SPECIFIC GRAVITY URINE AUTO; Value: 1.026; Range: 1.002-1.035; Status: F Test: PROTEIN, URINE AUTO; Value: NEGATIVE; Range: NEGATIVE; Units: mg/dL; Status: F Test: GLUCOSE, URINE (UA) AUTO; Value: NEGATIVE; Range: NEGATIVE; Units: mg/dL; Status: F Test: KETONE, URINE AUTO; Value: NEGATIVE; Range: NEGATIVE; Units: mg/dL; Status: F Test: UROBILINOGEN, URINE AUTO; Value: 0.2; Range: 0.0-2.0; Units: mg/dL; Status: F Test: BILIRUBIN, URINE AUTO; Value: NEGATIVE; Range: NEGATIVE; Status: F Test: NITRITE, URINE AUTO; Value: NEGATIVE; Range: NEGATIVE; Status: F Test: LEUKOCYTE ESTERASE, URINE AUTO; Value: 3+; Range: NEGATIVE; Abnormal: Above high normal; Status: F Test: BLOOD, URINE BLOOD; Value: 2+; Range: NEGATIVE; Abnormal: Above high normal; Status: F Test: WBC, URINE AUTO; Value: 83; Range: 0-3; Abnormal: Above high normal; Units: /HPF; Status: F Test: RBC, URINE AUTO; Value: 11; Range: 0-3; Abnormal: Above high normal; Units: /HPF; Status: F Test: BACTERIA, URINE AUTO; Value: 2+; Range: NEGATIVE; Abnormal: Above high normal; Status: F Test: SQUAMOUS EPITHELIAL CELL UR AU; Value: 6; Range: 0-6; Units: /HPF; Status: F Test: MUCUS, URINE; Value: SMALL; Range: NEGATIVE; Status: F Test: HYALINE CAST, URINE AUTO; Value: 0; Range: 0-1; Units: /LPF; Status: F Lab Order: Urine Culture; SPEC'M 08/11/16 23:01 Test: URINE CULTURE; Value: <EXTERNAL COMMENT eCWMed> FULL REPORT IN LAB NOTES (eCW and Medent).; Status: F Test: URINE CULTURE; Value: ORGANISM 1: ESCHERICHIA COLI; Status: F Test: URINE CULTURE; Value: ESCHERICHIA COLI; Status: F Test: URINE CULTURE; Value: COLONY COUNT CFU/ml >100,000; Status: F Test: URINE CULTURE; Value: GRAM NEG SENSI - VITEK 80; Status: F Test: URINE CULTURE; Value: Method: VIT2; Status: F Test: URINE CULTURE; Value: EXTD BRD SPCTRM BETA LACTAMASE -; Status: F Test: URINE CULTURE; Value: TRIMETHOPRIM/SULFAMETHOXAZOLE >=320 R; Status: F Test: URINE CULTURE; Value: AMPICILLIN >=32 R; Status: F Test: URINE CULTURE; Value: GENTAMICIN >=16 R; Status: F Test: URINE CULTURE; Value: NITROFURANTOIN <=16 S; Status: F Test: URINE CULTURE; Value: CEFAZOLIN <=4 S; Status: F Test: URINE CULTURE; Value: LEVOFLOXACIN >=8 R; Status: F Test: URINE CULTURE; Value: TOBRAMYCIN 8 I; Status: F Test: URINE CULTURE; Value: CEFTRIAXONE <=1 S; Status: F Test: URINE CULTURE; Value: CEFTAZIDIME <=1 S; Status: F Test: URINE CULTURE; Value: AMPICILLIN/SULBACTAM >=32 R; Status: F Test: URINE CULTURE; Value: PIPERACILLIN/TAZOBACTAM <=4 S; Status: F Test: URINE CULTURE; Value: AZTREONAM <=1 S; Status: F Test: URINE CULTURE; Value: ERTAPENEM <=0.5 S; Status: F Test: URINE CULTURE; Value: MEROPENEM <=0.25 S; Status: F Test: URINE CULTURE; Value: TIGECYCLINE <=0.5 S; Status: F Test: URINE CULTURE; Value: CEFEPIME <=1 S; Status: F Radiology Order: CT ABD & PELVIS: No Contrast Test: CT ABD & PELVIS: No Contrast REASON FOR EXAMINATION: pelvic pain post operative; ; CT of the abdomen and pelvis without contrast; Clinical statement: Pain, pelvic.; Technique: Multiple axial CT images were obtained from the base of the lungs to the floor of the pelv; is utilizing 5 mm axial slices without administration of contrast. Coronal and sagittal reconstructio; ns were also obtained.; No comparison is available.; Findings:; Chest: The visualized lung bases are clear.; Abdomen: There are several tiny pockets of free air under the diaphragm. This is seen both under the; right and left diaphragm, as well as within the gallbladder fossa. This is consistent with postsurgic; al changes. The kidneys are normal in size bilaterally. There is no evidence of hydronephrosis or nep; hrolithiasis. The liver, spleen, pancreas, gallbladder and adrenal glands are unremarkable. The aorta; demonstrates normal caliber and contour. There is no abdominal lymphadenopathy or ascites.; Pelvis: There is mild sigmoid diverticulosis without evidence of diverticulitis. No obstructive or in; flammatory bowel are noted. The appendix is normal. The urinary bladder is within normal limits. Ther; e is no pelvic lymphadenopathy or ascites. The other pelvic structures appear unremarkable.; Bones: There are no suspicious osseous abnormalities seen.; Impression:; 1. No focal acute findings to explain the patient's pain.; 2. Tiny pockets of free air, which are iatrogenic in nature.; 3. No evidence of hydronephrosis or nephrolithiasis.; 4. Mild sigmoid diverticulosis without evidence of diverticulitis. No obstructive or inflammatory bow; el changes.; 5. The uterus and adnexa appear grossly unremarkable.; ER physician was notified of these findings at 12:06 AM on 08/12/2015.; ; Outcome: 00:14 Discharge ordered by Provider. cs11 00:22 Discharge Assessment: Patient awake, alert and oriented x 3. No cognitive and/or af2 functional deficits noted. Patient verbalized understanding of disposition instructions. patient administered narcotics - yes. Pt provided with safe discharge. The following High Risk Discharge criteria are identified: None. Discharged to home ambulatory. Condition: stable. Discharge instructions given to patient, Instructed on discharge instructions, follow up and referral plans. medication usage, no driving heavy equipment, Demonstrated understanding of instructions, medications, Pt was receptive of discharge instructions/ teaching. CT Study completed. Property :Personal belongings accompany Pt. 00:23 Patient left the ED. af2 Addendum: 08/16/2016 15:32 Narrative: Urine culture results reviewed with Dr. Alston and Rx to be changed to kcs Macrobid 100 mg po BID x 7 days. Patient contacted and requests [facility] [employer]. Rx called in. Signatures: Dispatcher [employer] EDYue Cruz RN RN Bryanna Phan RN RN mcp Elsner, Karl, SUPERVISOR [employer]GES [employer] BUILDINGS Candice Latham Craig, DO DO cs11 Hallie Lanza RN RN af2 Janell Lezama, Reg Reg ks16 Candice Adan, Adilia lr2 Chart Complete MTDD
--- NOTE | 2016-08-16 15:37 | EDDOCDS ---
Physician Documentation [facility] Name: Valencia Pierce Age: 36 yrs Sex: Female : 1980 Arrival Date: 08/11/2016 Time: 22:02 Bed 7 Private MD: Sally Marcelino Abdul Disposition: 08/12/16 00:14 Discharged to Home/Self Care. Impression: Urinary tract infection, site not specified. - Condition is Stable. - Prescriptions for Cipro 500 mg Oral Tablet - take 1 tablet by ORAL route every 12 hours; 10 tablet. - Medication Reconciliation, Local Pharmacy Hours form. - Follow up: Sally Marcelino; When: Call to arrange an appointment; Reason: Recheck today's complaints. - Problem is new. - Symptoms have improved. Historical: - Allergies: PENICILLINS; - Home Meds: 1. Motrin 600 mg Oral tab as needed (Last dose: 08/11/2016 18:00) - PMHx: none; - PSHx: Tubal ligation; - Social history: Smoking status: Patient states was never smoker of tobacco. No barriers to communication noted, The patient speaks fluent Kinyarwanda. - Family history: Not pertinent. - : The pt / caregiver states he / she is not on anticoagulants. Home medication list is obtained from the patient. - Exposure Risk Screening:: None identified. 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 8 in. (172.72 cm) (R); Pain 10/10; 08/12 00:22 BP 139 / 90; Pulse 91; Resp 18 S; Temp 96.9(O); Pulse Ox 99% on R/A; Pain 0/10; af2 08/11 22:04 Body Mass Index 30.41 (90.72 kg, 172.72 cm) lr2 MDM: 08/11 22:40 oxyCODONE-acetaminophen 5 mg-325 mg 2 tabs PO once ordered. ke 22:41 CBC Ordered. EDMS 22:41 BMP Ordered. EDMS 22:41 UA Ordered. EDMS 22:41 Urine Culture Ordered. EDMS 22:41 CT ABD & PELVIS: No Contrast Ordered. EDMS 22:56 Financial registration complete. ks 22:57 [facility] Payment Agreement was scanned into [employer] and attached to record. ks 23:17 CBC Reviewed. ke 23:17 UA Reviewed. ke 23:49 BMP Reviewed. ke 23:49 Ciprofloxacin 500 mg PO once ordered. 08/12 00:13 CT ABD & PELVIS: No Contrast Reviewed. [facility] 08:03 T-Sheet-- Draft Copy was scanned into [employer] and attached to record. [facility] Administered Medications: 08/11 23:00 Drug: oxyCODONE-acetaminophen 2 tabs [oxycodone-acetaminophen 5 mg-325 mg tablet (2 af2 tabs)] Route: PO; 08/12 00:12 Follow up: Response: Pain is decreased af2 00:21 Drug: Ciprofloxacin 500 mg [ciprofloxacin 500 mg tablet (1 tabs)] Route: PO; af2 Signatures: Dispatcher [employer] Bryanna Enciso RN RN mcp Elsner, Karl, BREAKER ENGINEER BREAKER ENGINEER Ji Maza, DO cs11 Hallie Lanza RN RN af2 Janell Lezama, Reg Reg ks16 Candice Adan [facility] The chart was reviewed and I authenticate all verbal orders and agree with the evaluation and treatment provided.Attachments: 08/11 21:57 [facility] Payment Agreement 08/12 08:03 T-Sheet-- Draft Copy [facility] Chart Complete MTDD
--- NOTE | 2016-08-16 15:37 | EDDOCDS ---
Physician Documentation [facility] Name: Valencia Pierce Age: 36 yrs Sex: Female : 1980 Arrival Date: 08/11/2016 Time: 22:02 Bed 7 Private MD: Sally Marcelino Abdul Disposition: 08/12/16 00:14 Discharged to Home/Self Care. Impression: Urinary tract infection, site not specified. - Condition is Stable. - Prescriptions for Cipro 500 mg Oral Tablet - take 1 tablet by ORAL route every 12 hours; 10 tablet. - Medication Reconciliation, Local Pharmacy Hours form. - Follow up: Sally Marcelino; When: Call to arrange an appointment; Reason: Recheck today's complaints. - Problem is new. - Symptoms have improved. Historical: - Allergies: PENICILLINS; - Home Meds: 1. Motrin 600 mg Oral tab as needed (Last dose: 08/11/2016 18:00) - PMHx: none; - PSHx: Tubal ligation; - Social history: Smoking status: Patient states was never smoker of tobacco. No barriers to communication noted, The patient speaks fluent Kinyarwanda. - Family history: Not pertinent. - : The pt / caregiver states he / she is not on anticoagulants. Home medication list is obtained from the patient. - Exposure Risk Screening:: None identified. COTTAGE ATTENDANT: 08/11 22:17 3, Living 1, LMP 07/25/2016 mcp Vital Signs: 22:04 BP 139 / 88; Pulse 99; Resp 18; Temp 98.1(O); Pulse Ox 99% on R/A; Weight 90.72 kg / lr2 200 lbs (R); Height 5 ft. 8 in. (172.72 cm) (R); Pain 10/10; 08/12 00:22 BP 139 / 90; Pulse 91; Resp 18 S; Temp 96.9(O); Pulse Ox 99% on R/A; Pain 0/10; af2 08/11 22:04 Body Mass Index 30.41 (90.72 kg, 172.72 cm) lr2 MDM: 08/11 22:40 oxyCODONE-acetaminophen 5 mg-325 mg 2 tabs PO once ordered. ke 22:41 CBC Ordered. EDMS 22:41 BMP Ordered. EDMS 22:41 UA Ordered. EDMS 22:41 Urine Culture Ordered. EDMS 22:41 CT ABD & PELVIS: No Contrast Ordered. EDMS 22:56 Financial registration complete. ks 22:57 [facility] Payment Agreement was scanned into app[employer] and attached to record. ks 23:17 CBC Reviewed. ke 23:17 UA Reviewed. ke 23:49 BMP Reviewed. ke 23:49 Ciprofloxacin 500 mg PO once ordered. 08/12 00:13 CT ABD & PELVIS: No Contrast Reviewed. [facility] 08:03 T-Sheet-- Draft Copy was scanned into appsplit and attached to record. [facility] Administered Medications: 08/11 23:00 Drug: oxyCODONE-acetaminophen 2 tabs [oxycodone-acetaminophen 5 mg-325 mg tablet (2 af2 tabs)] Route: PO; 08/12 00:12 Follow up: Response: Pain is decreased af2 00:21 Drug: Ciprofloxacin 500 mg [ciprofloxacin 500 mg tablet (1 tabs)] Route: PO; af2 Signatures: Dispatcher [employer] Bryanna Enciso RN RN mcp Elsner, Karl, EXTERNAL GRINDER EXTERNAL GRINDER Ji Maza, DO cs11 Hallie Lanza RN RN af2 Janell Lezama, Reg Reg ks16 Candice Adan [facility] The chart was reviewed and I authenticate all verbal orders and agree with the evaluation and treatment provided.Attachments: 08/11 21:57 [facility] Payment Agreement 08/12 08:03 T-Sheet-- Draft Copy [facility] Chart Complete MTDD
== END 2016-08-12 00:23 | disposition home or self-care (01) ==
LOC: M ED 22:02
DX: N39.0 Urinary tract infection, site not specified (principal); Z88.0 Allergy status to penicillin

== ENCOUNTER 2016-10-26 06:35 | Emergency (ER) | payer OTHER ==
[~2016-10-26] VITALS: Ht 172.7 cm; Wt 90.7 kg
[2016-10-26] MEDS ORDERED: MORPHINE 4 MG/ML 1ML SYRINGE IV ONE (07:00)
[2016-10-26] MEDS ORDERED: KETOROLAC 30 MG/ML VIAL (J1885) IV ONE (07:00)
[2016-10-26] MEDS ORDERED: ONDANSETRON 4MG/2ML VIAL (J2405) As Ordered ONE (07:24)
[2016-10-26] MEDS ORDERED: ONDANSETRON 4MG/2ML VIAL (J2405) IV ONE (07:30)
[2016-10-26 07:39] LABS: BASO # 0.1 K/mm3 (0.0-0.2); BASO % 0.8 % (0.0-1.0); EOS # 0.1 K/mm3 (0.0-0.50); EOS % 1.8 % (0.0-3.0); LARGE UNSTAINED CELL # 0.1 K/mm3 (0.0-0.4); LARGE UNSTAINED CELL % 1.4 % (0.0-4.0); LYMPH # 2.5 K/mm3 (1.5-4.5); LYMPH % 32.1 % (24.0-44.0); MEAN CORPUSCULAR HEMOGLOBIN 33.7 pg (27.0-33.0); MEAN CORPUSCULAR HGB CONC 34.8 g/dl (32.0-36.5); MEAN CORPUSCULAR VOLUME 96.8 fl (80.0-96.0); MONO # 0.4 K/mm3 (0.0-0.8); NEUTROPHILS # 4.3 K/mm3 (1.8-7.7); NEUTROPHILS % 58.9 % (36.0-66.0); PLATELET COUNT, AUTOMATED 262 k/mm3 (150-450); RED CELL DISTRIBUTION WIDTH 12.5 % (11.5-14.5); WHITE BLOOD COUNT 7.3 K/mm3 (4.0-10.0)
[2016-10-26 07:45] LABS: INR 0.76
[2016-10-26 07:58] LABS: CONTROL LINE HCG INT CTR LINE PRESENT
[2016-10-26 08:10] LABS: ALBUMIN 3.8 GM/DL (3.2-5.2); ALBUMIN/GLOBULIN RATIO 1.12 (1.00-1.93); ALKALINE PHOSPHATASE 49 U/L (45-117); ALT/SGPT 19 U/L (12-78); AMYLASE 38 U/L (25-115); ANION GAP 10 MEQ/L (8-16); AST/SGOT 9 U/L (15-37); BILIRUBIN,DIRECT < 0.1 MG/DL (0.0-0.2); BILIRUBIN,TOTAL 0.3 MG/DL (0.2-1.0); BLOOD UREA NITROGEN 13 MG/DL (7-18); CALCIUM LEVEL 9.1 MG/DL (8.5-10.1); CARBON DIOXIDE LEVEL 28 MEQ/L (21-32); CHLORIDE LEVEL 103 MEQ/L (98-107); CREATININE FOR GFR 0.82 MG/DL (0.55-1.02); GLOMERULAR FILTRATION RATE > 60.0 (>60); GLUCOSE, FASTING 102 MG/DL (70-105); POTASSIUM SERUM 3.3 MEQ/L (3.5-5.1); SODIUM LEVEL 141 MEQ/L (136-145); TOTAL PROTEIN 7.2 GM/DL (6.4-8.2)
[2016-10-26] MEDS ORDERED: ISOVUE-370 76% 100ML VIAL (Q9967) As Ordered ONE (08:24)
--- NOTE | 2016-10-26 08:49 | REP ---
PORTABLE CHEST X-RAY: Single view. HISTORY: Chest pain. History tubal ligation. COMPARISON STUDY: September 10, 2013. FINDINGS: The lungs are well inflated and clear. Heart size is normal. Pulmonary vasculature is not increased. No significant bony abnormality is seen. IMPRESSION: Negative portable chest x-ray. Signed by Angus Maya MD 10/26/2016 10:20 A
[2016-10-26] MEDS ORDERED: IBUP600T26 PO (09:17)
[2016-10-26] MEDS ORDERED: NORCOTAB PO (09:17)
[2016-10-26 09:27] VITALS: BP 147/85
--- NOTE | 2016-10-26 09:37 | REP ---
CT PULMONARY ANGIOGRAM: With IV contrast. HISTORY: Chest pain, question pulmonary embolism. COMPARISON STUDIES: Comparison is made with today's portable chest x-ray. Comparison chest CT study is from March 02, 2015. Contrast dose: 75 mL of Isovue [address] TECHNIQUE: Helical scanning is acquired and overlapping 1.5 mm and contiguous 3 mm axial images are reformatted. In addition, a 3D work station is deployed to generate thick slab maximum intensity projection images in sagittal and coronal imaging projections. CT PULMONARY ANGIOGRAPHIC FINDINGS: There is good opacification of the pulmonary arterial tree and there is no CT evidence of pulmonary embolism. The thoracic aorta is normal in coarse, caliber and homogeneous in enhancement postcontrast. No aneurysm or dissection is seen. There is no evidence of pleural or pericardial effusion. No hilar or mediastinal mass or adenopathy is seen. The lung graham are clear. Maximal intensity projection images show no evidence of vessel cutoff or arterial filling defect to suggest an embolus. The right infrahilar density described on March 02, 2015 is no longer apparent. No adrenal lesion is seen. There are is no other upper abdominal abnormality. Bone window settings show no bony destructive lesion. No rib or other fracture is seen. There is no evidence of pulmonary nodule, mass, infiltrate or atelectasis. IMPRESSION: No CT evidence of pulmonary embolism. No active disease. Signed by Angus Maya MD 10/26/2016 10:26 A
--- NOTE | 2016-10-26 09:44 | ECGEPIP ---
Stationary ECG Study [facility] - ED Test Date: 2016-10-26 Pat Name: EMILIANO RAMIREZ Department: Room: - Gender: F Carpenter Inspector: rn : 1980 Requested By: DEVIN FELDMAN Order Number: [id number] Reading MD: Candice Dodson Measurements Intervals [place] Rate: 73 P: 8 [place]: 175 QRS: -9 QRSD: 102 T: 19 QT: 389 QTc: 431 Interpretive Statements SINUS RHYTHM SIMILAR 03/02/15 Electronically Signed On 10-26-2016 9:44:46 EDT by Candice Dodson
--- NOTE | 2016-10-26 09:59 | REP ---
CT ABDOMEN AND PELVIS WITH CONTRAST: TECHNIQUE: Axial contrast enhanced images from the lung bases to the pubic symphysis using 100 mL Isovue 370 intravenous contrast material with multiplanar reformations. Liver, spleen, adrenals, pancreas and kidneys are unremarkable in appearance. There is no abdominal aortic aneurysm. There is no adenopathy. There is no free air or free fluid. Scattered diverticula are seen in the colon without acute diverticulitis. The appendix is normal. I see no suspicious pelvic mass. There is a right ovarian follicle 1.8 cm in diameter. The urinary bladder is mildly distended and grossly unremarkable. IMPRESSION: Right ovarian follicle 1.8 cm in diameter. No free air or free fluid. No evidence of appendicitis or other acute finding. There are scattered diverticula in the colon without evidence of acute diverticulitis. Signed by zA Davis MD 10/26/2016 07:56 P
== END 2016-10-26 09:28 | disposition home or self-care (01) ==
LOC: M ED 08:09
DX: N83.01 Follicular cyst of right ovary (principal); M54.9 Dorsalgia, unspecified; R07.9 Chest pain, unspecified; K21.9 Gastro-esophageal reflux disease without esophagitis; Z79.899 Other long term (current) drug therapy; Z88.0 Allergy status to penicillin

== ENCOUNTER 2016-12-13 19:25 | Inpatient (IN) | payer OTHER ==
[~2016-12-13] VITALS: Ht 172.7 cm; Wt 93.2 kg
[~2016-12-13 19:25] MED LIST changes: +IBUP-1022 PO; +NORCOTAB PO; -PHEN-223 PO; +PHEN30CA2 PO
[2016-12-13] MEDS ORDERED: SUCR1TA PO (19:46)
[2016-12-13] MEDS ORDERED: NS 1,000 ML IV ONE (22:30)
[2016-12-13] MEDS ORDERED: ONDANSETRON 4MG/2ML VIAL (J2405) IV ONE (22:30)
[2016-12-13] MEDS ORDERED: MORPHINE 4 MG/ML 1ML SYRINGE IV ONE ×2 (22:30→23:30)
[2016-12-13 22:37] LABS: BASO % 0.5 % (0.0-1.0); EOS # 0.1 K/mm3 (0.0-0.50); LARGE UNSTAINED CELL # 0.1 K/mm3 (0.0-0.4); LARGE UNSTAINED CELL % 1.1 % (0.0-4.0); LYMPH # 1.3 K/mm3 (1.5-4.5); LYMPH % 12.9 % (24.0-44.0); MEAN CORPUSCULAR HEMOGLOBIN 33.6 pg (27.0-33.0); MEAN CORPUSCULAR HGB CONC 35.2 g/dl (32.0-36.5); MEAN CORPUSCULAR VOLUME 95.6 fl (80.0-96.0); MONO # 0.4 K/mm3 (0.0-0.8); MONO % 3.9 % (0.0-5.0); NEUTROPHILS # 7.6 K/mm3 (1.8-7.7); NEUTROPHILS % 80.6 % (36.0-66.0); PLATELET COUNT, AUTOMATED 300 k/mm3 (150-450); RED CELL DISTRIBUTION WIDTH 12.7 % (11.5-14.5); WHITE BLOOD COUNT 9.4 K/mm3 (4.0-10.0)
[2016-12-13 22:44] LABS: CALCIUM OXALATE CRYSTALS MODERATE
[2016-12-13 22:44] LABS: ALBUMIN/GLOBULIN RATIO 1.29 (1.00-1.93); ALKALINE PHOSPHATASE 237 U/L (45-117); ALT/SGPT 796 U/L (12-78); AMYLASE 37 U/L (25-115); ANION GAP 8 MEQ/L (8-16); AST/SGOT 592 U/L (15-37); BILIRUBIN,DIRECT 2.3 MG/DL (0.0-0.2); BILIRUBIN,TOTAL 2.9 MG/DL (0.2-1.0); BLOOD UREA NITROGEN 7 MG/DL (7-18); CALCIUM LEVEL 9.4 MG/DL (8.5-10.1); CARBON DIOXIDE LEVEL 25 MEQ/L (21-32); CHLORIDE LEVEL 105 MEQ/L (98-107); CREATININE FOR GFR 0.99 MG/DL (0.55-1.02); GLOMERULAR FILTRATION RATE > 60.0 (>60); GLUCOSE, FASTING 125 MG/DL (70-105); POTASSIUM SERUM 3.8 MEQ/L (3.5-5.1); SODIUM LEVEL 138 MEQ/L (136-145); TOTAL PROTEIN 7.1 GM/DL (6.4-8.2)
[2016-12-13] MEDS ORDERED: ISOVUE-370 76% 100ML VIAL (Q9967) As Ordered ONE (22:52)
--- NOTE | 2016-12-13 23:30 | REPUSA ---
CT of the abdomen and pelvis with contrast Clinical statement: Pain. Technique: Multiple axial CT images were obtained from the base of the lungs through the floor of the pelvis utilizing 5 mm axial slices after administration of nonionic intravenous contrast. Coronal an d sagittal reconstructions were also obtained. Comparison: 10/26/2016. Findings: Chest: The visualized lung bases are clear. Abdomen: The liver, spleen, pancreas, kidneys, and adrenal glands are unremarkable. The gallbladder i s distended. No gallstones are identified. The common bile duct measures 6 mm and is within normal li mits. The aorta is within normal limits. There is no evidence of abdominal lymphadenopathy or ascites . Pelvis: The bowel is unremarkable, with no obstructive or inflammatory changes. Left-sided diverticul osis is noted, without evidence of diverticulitis. The appendix is normal. The urinary bladder is wit hin normal limits. There is a low attenuation lesion in the left ovary measuring 3.0 x 1.9 cm. The ot her pelvic structures appear grossly intact. There is no evidence of pelvic lymphadenopathy or ascite s. Bones: There are no suspicious osseous abnormalities seen. Impression: 1. No obstructive or inflammatory bowel changes. Left-sided diverticulosis without evidence of divert iculitis. 2. Simple left ovarian cyst measuring up to 3 cm. 3. No evidence of hydronephrosis. 4.. Distended gallbladder. No pericholecystic inflammation or biliary ductal dilatation.
[2016-12-14] VITALS (9 sets, daily range): BP systolic 129–162; BP diastolic 70–91
--- NOTE | 2016-12-14 00:30 | REPUSA ---
CLINICAL HISTORY: Abdominal pain. TECHNIQUE: Realtime sonographic images were obtained in multiple projections. COMMENTS: The liver is of normal size, parenchyma demonstrates normal echogenicity. No discrete hepatic mass is seen. The liver measures 14.3x6x4.2 cm. There is no intra or extrahepatic biliary ductal dilatation. CBD measures 8.1 mm. The gallbladder is distended with evidence of calculi. The calculi are impacted in the neck of the gallbladder. The gall bladder wall is not thickened and there is no pericholecystic fluid. There is no abdominal ascites. The right kidney measures 10.8x6.4x4 cm, free of hydronephrosis. IMPRESSION: Cholelithiasis. Gallstones are impacted in the neck of the gallbladder. Distended gallbladder. Developing acute cholecystitis is considered. Clinical evaluation and possibly surgical consultation. Thank you for your kind referral of this patient.
[2016-12-14] MEDS ORDERED: IBUP-1022 PO (00:56)
[2016-12-14] MEDS ORDERED: NORC1TAB4 PO (00:56)
[2016-12-14] MEDS ORDERED: PHEN30CA2 PO (00:56)
[2016-12-14] MEDS ORDERED: ONDANSETRON 4MG/2ML VIAL (J2405) IV PRN ×2 (01:00→19:00)
[2016-12-14] MEDS ORDERED: MORPHINE 2 MG/ML 1ML SYRINGE IV PRN (01:00)
[2016-12-14] MEDS: MORPHINE 4 MG/ML 1ML SYRINGE IV PRN ×2 (01:22→14:09)
[2016-12-14] MEDS: LR 1,000 ML IV SCH ×4 (01:30→20:30)
[2016-12-14] MEDS: CIPROFLOXACIN 400 MG in APPROPRIATE DILUENT 1 EA IV SCH ×2 (01:30→14:03)
[2016-12-14] MEDS ORDERED: MORPHINE 4 MG/ML 1ML SYRINGE IV ONE (02:15)
[2016-12-14] MEDS ORDERED: KETOROLAC 30 MG/ML VIAL (J1885) IV ONE ×2 (02:15→08:30)
[2016-12-14 08:54] LABS: ALBUMIN 3.2 GM/DL (3.2-5.2); ALKALINE PHOSPHATASE 184 U/L (45-117); ALT/SGPT 559 U/L (12-78); ANION GAP 5 MEQ/L (8-16); AST/SGOT 287 U/L (15-37); BILIRUBIN,TOTAL 3.6 MG/DL (0.2-1.0); BLOOD UREA NITROGEN 3 MG/DL (7-18); CALCIUM LEVEL 8.4 MG/DL (8.5-10.1); CARBON DIOXIDE LEVEL 29 MEQ/L (21-32); CHLORIDE LEVEL 105 MEQ/L (98-107); CREATININE FOR GFR 0.74 MG/DL (0.55-1.02); GLOMERULAR FILTRATION RATE > 60.0 (>60); GLUCOSE, FASTING 105 MG/DL (70-105); POTASSIUM SERUM 3.6 MEQ/L (3.5-5.1); SODIUM LEVEL 139 MEQ/L (136-145); TOTAL PROTEIN 6.1 GM/DL (6.4-8.2)
--- NOTE | 2016-12-14 09:06 | HPE ---
DATE OF ADMISSION: 12/14/2016 BRIEF HISTORY OF PRESENT ILLNESS: Patient is a 36-year-old female who a month and half ago developed some severe epigastric pain which resolved after a relatively short period of time, was seen had a pulmonary angiogram because of her severe epigastric pain. That went away, however, she developed over the last week some epigastric pain and discomfort. She was seen and actually came to my office for to establish an office appointment earlier this week. She scheduled that, however, I did not see her as of yet and in the meantime, she developed progressive abdominal pain. She developed acholic stools with bilirubinuria and presented to the emergency room with a normal white count, however with elevated liver function tests. She ended up undergoing a CAT scan of the abdomen and pelvis, which showed a distended gallbladder, but otherwise no other significant abnormalities. She also then underwent a gallbladder ultrasound, which showed a common bile duct of 8 mm, a gallstone which was in an impacted within the neck of the gallbladder, a distended gallbladder, but without gallbladder wall thickening. The patient has not had any fevers, chills. No change in bowel habits. PAST MEDICAL HISTORY: Significant for: 1. History of tubal ligation. 2. History of reflux. MEDICATIONS: Include: - omeprazole - Carafate - [place] - ibuprofen PHYSICAL EXAMINATION: Physical exam reveals a 36-year-old female who looks stated age. HEENT is unremarkable. Neck supple without adenopathy. Lungs are clear to auscultation without crackles, wheezes or rhonchi. Heart is regular. Abdomen is soft, distended, mildly but tender throughout the epigastric area in the right upper quadrant. Extremities are warm, well-perfused. IMPRESSION AND PLAN: Patient has evidence of probable common bile duct stone given her acholic stools and bilirubinuria and elevated liver function tests. I have discussed this finding with Dr. Mendoza who agrees to proceed with an ERCP as the most likely etiology for her common bile duct obstruction/abnormal liver function tests. Once this is performed, will get her on a clear liquid diet. She can be discharged to home and followup in my office in the next week or so for plans of an outpatient laparoscopic cholecystectomy. She understands and we will schedule this as soon as possible for her. Otherwise, will have her on antibiotics at this time empirically to avoid any possible ascending cholangitis issues in the meantime.
--- NOTE | 2016-12-14 10:47 | REP ---
Clinical: Biliary stones. Technique: Standard noncontrast MRCP sequencing. Findings: The gallbladder appears distended with multiple small mobile gallstones which are identified filling the dependent portion of the proximal gallbladder extending into the neck of the gallbladder. Trace pericholecystic fluid is suggested. While small stones within the cystic duct cannot be excluded, the common bile duct is mildly dilated to approximately 8 mm but without definite obstructing CBD stone identified. Impression: Distended gallbladder with multiple mobile gallstones extending into the gallbladder neck and possibly within the cystic duct. Trace pericholecystic fluid is appreciated and findings may reflect intermittent obstruction and subtle acute cholecystitis. While the common bile duct is mildly dilated to 8 mm, no filling defect or obstructing CBD stone is identified. Signed by Oliver Pina MD 12/14/2016 10:39 A
[2016-12-14] MEDS ORDERED: MIDAZOLAM INJ 2 MG/2 ML VIAL (J2250) As Ordered ONE (16:56)
[2016-12-14] MEDS ORDERED: fentaNYL 100 MCG/2 ML INJECTION (J3010) As Ordered ONE (16:56)
[2016-12-14] MEDS ORDERED: PROPOFOL 200 MG/20 ML VIAL As Ordered ONE (17:42)
[2016-12-14] MEDS ORDERED: ROCURONIUM BROMIDE 50 MG/5 ML VIAL/SYRINGE As Ordered ONE (17:43)
[2016-12-14] MEDS ORDERED: LIDOCAINE 2% INJ 100 MG/5 ML SDV (FOR ANES.) As Ordered ONE (17:43)
[2016-12-14] MEDS ORDERED: GLYCOPYRROLATE INJ 0.2 MG/ML 2 ML VIAL As Ordered ONE (18:10)
[2016-12-14] MEDS ORDERED: NEOSTIGMINE 1MG/ML 5 ML SYRINGE (J2710) As Ordered ONE (18:10)
[2016-12-14] MEDS ORDERED: ONDANSETRON 4MG/2ML VIAL (J2405) As Ordered ONE (18:10)
[2016-12-14] MEDS ORDERED: INDOMETHACIN 50 MG SUPPOSITORY (INDOCIN) As Ordered ONE (18:28)
--- NOTE | 2016-12-14 18:46 | ROOR ---
Patient Name: Valencia Pierce Procedure Date: 12/14/2016 5:43 PM Date of : 1980 Age: 36 Room: Main OR Gender: Female Note Status: Finalized Procedure: ERCP + Papillotomy + Balloon Sweep Indications: Abdominal pain of suspected biliary origin, Abnormal MRCP, Biliary dilation on Ultrasound, Jaundice, Elevated liver enzymes, Evaluation and possible treatment of bile duct stone(s), Suspected bile duct stone(s) Providers: Ezekiel Mendoza MD Referring MD: Shawn Hirsch Jr, MD, GINO GALARZA MD Requesting Provider: Medicines: General Anesthesia Complications: No immediate complications. Procedure: Pre-Anesthesia Assessment: - The heart rate, respiratory rate, oxygen saturations, blood pressure, adequacy of pulmonary ventilation, and response to care were monitored throughout the procedure. The Duodenoscope was introduced through the mouth, and advanced to the duodenum and used to inject contrast into the bile duct. The ERCP was accomplished without difficulty. The patient tolerated the procedure well. Findings: The upper GI tract was traversed under direct vision without detailed examination. The major papilla was normal. A short 0.035 inch Soft Jagwire was passed into the biliary tree. The short-nosed traction sphincterotome was passed over the guidewire and the bile duct was then deeply cannulated. Contrast was injected. I personally interpreted the bile duct images. Ductal flow of contrast was adequate. Image quality was adequate. Contrast extended to the entire biliary tree. Biliary sphincterotomy was made with a monofilament traction (standard) sphincterotome using ERBE electrocautery. There was no post-sphincterotomy bleeding. The common bile duct contained multiple stones mm. The biliary tree was swept with a 12 mm balloon starting at the bifurcation. Sludge was swept from the duct. All stones were removed. Impression: - Choledocholithiasis was found. Complete removal was accomplished by biliary sphincterotomy and balloon extraction. - A biliary sphincterotomy was performed. - The biliary tree was swept. - The examination was otherwise normal. Recommendation: - Avoid aspirin and nonsteroidal anti-inflammatory medicines. - [facility] patient to [facility]. - Watch for pancreatitis, bleeding, perforation, and cholangitis. - The findings and recommendations were discussed with the patient. Ezekiel Mendoza MD Ezekiel Mendoza MD 12/14/2016 6:46:20 PM This report has been signed electronically. Number of Addenda: 0 Note Initiated On: 12/14/2016 5:43 PM Estimated Blood Loss: Estimated blood loss: none.
[2016-12-14] MEDS ORDERED: INDOMETHACIN 50 MG SUPPOSITORY (INDOCIN) PR SCH (19:00)
[2016-12-14] MEDS ORDERED: LR 1,000 ML IV SCH (19:00)
[2016-12-14] MEDS ORDERED: fentaNYL 100 MCG/2 ML INJECTION (J3010) IV PRN (19:00)
--- NOTE | 2016-12-14 20:05 | REP ---
Clinical: Epigastric pain. Technique: Intraoperative fluoroscopic images for ERCP. Findings: Multiple images from ERCP demonstrate contrast opacification of the common bile duct and intrahepatic biliary ducts without dilatation or filling defects. The cystic duct and gallbladder are not visualized and may represent cystic duct obstruction. Clinical correlation is recommended. Total fluoroscopic time 1 minute 48 seconds. Impression: 1. Normal appearance to the common bile duct and hepatic ducts without dilatation or filling defects. 2. Cystic duct and gallbladder not visualized. Signed by Oliver Pina MD 12/14/2016 07:57 P
[2016-12-15] MEDS: CIPROFLOXACIN 400 MG in APPROPRIATE DILUENT 1 EA IV SCH (01:28)
[2016-12-15 02:00] VITALS: BP 128/71
[2016-12-15] MEDS: LR 1,000 ML IV SCH (04:12)
[2016-12-15 06:00] VITALS: BP 122/76
[2016-12-15 07:57] LABS: ALBUMIN 2.8 GM/DL (3.2-5.2); ALBUMIN/GLOBULIN RATIO 1.08 (1.00-1.93); ALKALINE PHOSPHATASE 166 U/L (45-117); ALT/SGPT 335 U/L (12-78); ANION GAP 6 MEQ/L (8-16); AST/SGOT 93 U/L (15-37); BILIRUBIN,DIRECT 2.8 MG/DL (0.0-0.2); BILIRUBIN,TOTAL 3.3 MG/DL (0.2-1.0); BLOOD UREA NITROGEN 3 MG/DL (7-18); CALCIUM LEVEL 7.9 MG/DL (8.5-10.1); CARBON DIOXIDE LEVEL 28 MEQ/L (21-32); CHLORIDE LEVEL 107 MEQ/L (98-107); CREATININE FOR GFR 0.67 MG/DL (0.55-1.02); GLOMERULAR FILTRATION RATE > 60.0 (>60); GLUCOSE, FASTING 100 MG/DL (70-105); POTASSIUM SERUM 3.6 MEQ/L (3.5-5.1); SODIUM LEVEL 141 MEQ/L (136-145); TOTAL PROTEIN 5.4 GM/DL (6.4-8.2)
[2016-12-15 11:50] VITALS: BP 137/66
[2016-12-15] MEDS ORDERED: SLF 3 ML SYR IV PRN (12:15)
[2016-12-15] MEDS: SLF 3 ML SYR IV SCH ×2 (14:06→20:18)
[2016-12-15] MEDS ORDERED: ACETAMINOPHEN TAB 650MG DOSE (2X325MG) PO PRN (15:00)
[2016-12-15 16:00] VITALS: BP 124/87
[2016-12-15] MEDS ORDERED: IBUPROFEN 600 MG TAB PO PRN (18:15)
[2016-12-15 20:00] VITALS: BP 114/72
[2016-12-15] MEDS ORDERED: diphenhydrAMINE 25 MG CAP PO PRN (21:00)
[2016-12-16] VITALS: BP 130/63
[2016-12-16] MEDS: SLF 3 ML SYR IV SCH (06:00)
[2016-12-16 06:53] LABS: ALBUMIN 2.9 GM/DL (3.2-5.2); ALBUMIN/GLOBULIN RATIO 0.85 (1.00-1.93); ALKALINE PHOSPHATASE 169 U/L (45-117); ALT/SGPT 263 U/L (12-78); ANION GAP 7 MEQ/L (8-16); AST/SGOT 57 U/L (15-37); BILIRUBIN,DIRECT 0.8 MG/DL (0.0-0.2); BILIRUBIN,TOTAL 1.2 MG/DL (0.2-1.0); BLOOD UREA NITROGEN 6 MG/DL (7-18); CALCIUM LEVEL 8.2 MG/DL (8.5-10.1); CARBON DIOXIDE LEVEL 26 MEQ/L (21-32); CHLORIDE LEVEL 108 MEQ/L (98-107); CREATININE FOR GFR 0.76 MG/DL (0.55-1.02); GLOMERULAR FILTRATION RATE > 60.0 (>60); GLUCOSE, FASTING 103 MG/DL (70-105); POTASSIUM SERUM 3.6 MEQ/L (3.5-5.1); SODIUM LEVEL 141 MEQ/L (136-145); TOTAL PROTEIN 6.3 GM/DL (6.4-8.2)
[2016-12-16 08:00] VITALS: BP 134/75
--- NOTE | 2016-12-17 07:56 | CR ---
DATE OF CONSULTATION: 12/14/2016 36-year-old white female admitted to [facility] ([facility]) for evaluation of epigastric pain. She had light colored stools and a change in her urine to a coca-cola color. Patient was admitted with severe epigastric pain approximately 1 week prior to admission. She has had an abdominal CT, which showed a distended gallbladder, and ultrasound shows an 8 mm common bile duct stone impacted within the neck of the gallbladder and a distended gallbladder with no evidence of gallbladder wall thickening. No apparent fevers, night sweats, or shaking chills. Patient apparently had a pulmonary angiogram which was negative, but she continued to have progressive abdominal pain and acholic stools with hyperbilirubinemia. Patient is here now for possible choledocholithiasis. Though CT does not suggest any stones, there is some mild biliary dilatation. PAST MEDICAL HISTORY: Positive for: 1. Tubal ligation. 2. History of reflux. MEDICATIONS: Include: - omeprazole - Carafate - ibuprofen PHYSICAL EXAMINATION: Slightly obese white female in no acute distress. Appears stated age. Chest: Clear to auscultation and percussion. Cardiovascular Exam: Showed a regular rhythm. No murmurs or gallops. No physiological split. S1 and S2. Abdomen: Soft, nontender. No masses, guarding, rebound, hepatosplenomegaly. Bowel sounds positive. Extremities: No cyanosis, clubbing, edema. Latoya's negative. LABORATORY STUDIES: On admission, shows white count 9,400, hemoglobin and hematocrit of 13.8 and 39.2. Chemistry shows an amylase of 37, lipase 272. The patient's total bilirubin is 3.6 today, on 12/14/2016, which is rising, and the patient AST is 287, ALT is 559 (both are lower) and the patient's alkaline phosphatase is 184, which is also lower. Abdominal CT, abdominal MRI shows distended gallbladder with multiple gallstones extending into the gallbladder neck and possibly within the cystic duct. Trace pericholecystic fluid is appreciated, and findings may reflect intermittent obstruction and subtle acute cholecystitis. Common bile duct is mildly dilated to 8 mm. No filling defect or obstructive common bile duct stone is identified. ANALYSIS: Abnormal liver function tests. Rising bilirubin. PLAN: Will be to rule out choledocholithiasis. Plan will be to set patient up for endoscopic retrograde cholangiopancreatography (ERCP) plus papillotomy and balloon sweep.
--- NOTE | 2017-01-01 22:00 | DSES ---
DATE OF ADMISSION: 12/14/2016 DATE OF DISCHARGE: 12/16/2016 PRINCIPAL DIAGNOSIS: Cholecystitis and common bile duct stone. ASSOCIATED DIAGNOSES: History of gastroesophageal (GE) reflux, history of tubal ligation. HISTORY OF PRESENT ILLNESS: The patient is a 36-year-old white female who developed, approximately a month prior to admission, some severe epigastric pain, ended up having some pulmonary angiograms to evaluate her for some shortness of breath that occurred with that episode of severe epigastric pain. It was negative and she was started on medications for her stomach and presented with acholic stools, bilirubinuria, a normal white count, however, elevated liver function tests and a common bile duct of 8 mm. HOSPITAL COURSE SUMMARY: The patient was admitted with the above diagnosis, had liver function tests that elevated the following day and stayed elevated until she underwent an ERCP for presumed common bile duct stone. She did have a MRCP that did not show any stones in the duct but this was proved to be false and there were some on ERCP. In any case, she improved substantially over the night prior to discharge and she was discharged the following day on 12/16/2016, tolerating a regular diet and was not having any pain or discomfort at that time. Medications at the time of discharge include [place], ibuprofen, omeprazole, and phentermine. She was instructed to stop her Carafate at this time but to followup with myself in 2-3 weeks, sooner if there is any questions, concerns, fevers or chills with the plan on a laparoscopic cholecystectomy as an outpatient.
== END 2016-12-16 11:55 | disposition home or self-care (01) ==
LOC: M ED 19:25 → M ED INP 12-14 00:40 → M MSPAV 12-14 01:52 → M PED 12-15 11:37
PROVIDERS: ADMIT Surgery; ATTEND Surgery
PROC: 0FC98ZZ Extirpation of Matter from Common Bile Duct, Via Natural or Artificial Opening Endoscopic (ICD-10-PCS; principal; 2016-12-14 08:13)
DX: K80.70 Calculus of gallbladder and bile duct without cholecystitis without obstruction (principal); K21.9 Gastro-esophageal reflux disease without esophagitis; Z79.1 Long term (current) use of non-steroidal anti-inflammatories (NSAID); Z79.891 Long term (current) use of opiate analgesic; Z79.899 Other long term (current) drug therapy

== ENCOUNTER 2017-03-12 11:55 | Day surgery (SDC) | payer OTHER ==
[~2017-03-12] VITALS: Ht 172.7 cm; Wt 86.2 kg
[~2017-03-12 11:55] MED LIST changes: +NORC1TAB4 PO; +SUCR1TA PO
[2017-03-12] MEDS ORDERED: LR 1,000 ML IV ONE (12:15)
[2017-03-12] MEDS ORDERED: ceFAZolin SOD 1 GM in D5W MINI-BAG PLUS 50 ML IV ONE (12:15)
[2017-03-12] MEDS ORDERED: PROPOFOL 200 MG/20 ML VIAL As Ordered ONE (12:41)
[2017-03-12] MEDS ORDERED: LIDOCAINE 2% INJ 100 MG/5 ML SDV (FOR ANES.) As Ordered ONE (12:41)
[2017-03-12] MEDS ORDERED: fentaNYL 100 MCG/2 ML INJECTION (J3010) As Ordered ONE (12:41)
[2017-03-12] MEDS ORDERED: ROCURONIUM BROMIDE 50 MG/5 ML VIAL/SYRINGE As Ordered ONE ×2 (12:41→13:59)
[2017-03-12] MEDS ORDERED: MIDAZOLAM INJ 2 MG/2 ML VIAL (J2250) As Ordered ONE (12:41)
[2017-03-12] MEDS ORDERED: BUPIVACAINE/EPIN 0.25% 30 ML VIAL As Ordered ONE (12:50)
[2017-03-12] MEDS ORDERED: dexameTHASONE 4 MG/ML 1ML VIAL (J1100) As Ordered ONE (13:34)
[2017-03-12] MEDS ORDERED: METOCLOPRAMIDE INJ 10MG/2ML VIAL (J2765) As Ordered ONE (13:35)
[2017-03-12] MEDS ORDERED: KETOROLAC 60 MG/2 ML VIAL (J1885) As Ordered ONE (13:39)
[2017-03-12] MEDS ORDERED: ONDANSETRON 4MG/2ML VIAL (J2405) As Ordered ONE (13:39)
[2017-03-12] MEDS ORDERED: GLYCOPYRROLATE INJ 0.2 MG/ML 2 ML VIAL As Ordered ONE (13:39)
[2017-03-12] MEDS ORDERED: NEOSTIGMINE 10 MG/10 ML VIAL (J2710) As Ordered ONE (13:39)
[2017-03-12] MEDS ORDERED: HYDROmorphone HCL 2 MG/ML 1ML VIAL (J1170) As Ordered ONE (13:49)
[2017-03-12] MEDS ORDERED: ESMOLOL INJ 100MG/10ML VIAL As Ordered ONE (13:55)
[2017-03-12] MEDS ORDERED: ONDANSETRON 4MG/2ML VIAL (J2405) IV SCH (14:45)
[2017-03-12] MEDS ORDERED: NORCO, ANEXSIA 5/325MG TABLET (HYDROcodone/ACETAMINOPHEN) PO PRN (14:45)
[2017-03-12] MEDS ORDERED: KETOROLAC 30 MG/ML VIAL (J1885) IV PRN (14:45)
[2017-03-12] MEDS ORDERED: LR 1,000 ML IV SCH ×2 (14:45→15:00)
[2017-03-12] MEDS ORDERED: MORPHINE 2 MG/ML 1ML SYRINGE IV PRN (14:45)
[2017-03-12] MEDS ORDERED: METOCLOPRAMIDE INJ 10MG/2ML VIAL (J2765) IV PRN (15:00)
[2017-03-12] MEDS ORDERED: ONDANSETRON 4MG/2ML VIAL (J2405) IV PRN (15:00)
[2017-03-12] MEDS ORDERED: MEPERIDINE INJ 25 MG/ML VIAL (J2175) IV PRN (15:00)
[2017-03-12] MEDS: fentaNYL 100 MCG/2 ML INJECTION (J3010) IV PRN ×5 (15:02→15:33)
[2017-03-12] MEDS: PERCOCET 5MG/325MG TAB PO PRN ×2 (15:09→16:22)
[2017-03-12] MEDS ORDERED: HYDROmorphone HCL 1 MG/ML SYRINGE (J1170) As Ordered ONE (15:59)
[2017-03-12] MEDS ORDERED: HYDROmorphone HCL 1 MG/ML SYRINGE (J1170) IV PRN (16:15)
[2017-03-12] MEDS ORDERED: MAALOX 30 ML SUSP *UDC PO ONE (16:30)
[2017-03-12 17:25] VITALS: BP 139/88
--- NOTE | 2017-03-29 10:10 | RO ---
DATE OF PROCEDURE: 03/12/2017 PREOPERATIVE DIAGNOSIS: Acute cholecystitis, history of cholecystitis. POSTOPERATIVE DIAGNOSIS: Acute cholecystitis, history of cholecystitis. PROCEDURE: Laparoscopic cholecystectomy. SURGEON: Dr. Shawn Hirsch BRICKLAYER: ANESTHESIA: General endotracheal anesthesia. ESTIMATED BLOOD LOSS: Minimal. FLUIDS: Crystalloid. DESCRIPTION OF PROCEDURE: The patient was taken to the operating room abd was given general anesthesia. After adequate anesthesia and preoperative antibiotics were given, the patient was prepped and draped in the usual sterile fashion. Next, a periumbilical incision was made with skin knife. Blunt dissection was carried down to fascia. Fascia was grasped with Abraham clamps, elevated and a Veress needle placed into the abdominal cavity. A dilating 10 mm trocar was placed after the abdomen was insufflated to 15 mm of pressure under direct visualization and an epigastric and two lateral trocars were placed. The gallbladder was grasped, retracted superiorly and the neck of the gallbladder then was cleared of adhesions of the omentum up against the gallbladder itself with hook cautery. Eventually, the neck of the gallbladder was cleared and then peritoneum was taken down laterally, first with hook cautery and then anteriorly and then medially. The cystic artery was visualized at this time, surrounded with the hook cautery and then further dissection was performed around the neck of the gallbladder/cystic duct area. Eventually, this was dissected out quite nicely so that a critical view of safety was obtained. The cystic artery was clipped proximally and distally and transected. A window behind the neck of the gallbladder that had been previously made so that the critical view could be appreciated in the dissection and had been carried up in the cystic plate was performed even further to make sure that adequate length of the cystic duct was visualized. Once the cystic duct was well visualized, clips were placed on the cystic duct/gallbladder neck junction and transected. The gallbladder was removed from the gallbladder bed using electrocautery and placed in an EndoCatch bag and brought out through the umbilicus. The right upper quadrant was copiously irrigated until clear. All incisions were closed with #4-0 Vicryl after #0 Vicryl was used close the fascia at the umbilicus. Steri-Strips and a dry sterile dressing was applied. The patient was awakened, extubated and brought to the recovery room awake, alert and hemodynamically stable. Sponge and needle counts were correct times two.
== END 2017-03-12 17:55 | disposition home or self-care (01) ==
LOC: M SDC 11:55
PROVIDERS: ATTEND Surgery
DX: K80.10 Calculus of gallbladder with chronic cholecystitis without obstruction (principal); K21.9 Gastro-esophageal reflux disease without esophagitis; R06.83 Snoring; Z88.0 Allergy status to penicillin; Z79.3 Long term (current) use of hormonal contraceptives; Z86.32 Personal history of gestational diabetes; Z79.899 Other long term (current) drug therapy; Z98.51 Tubal ligation status
CPT/HCPCS: 47562; 88304; J0690; J1100; J1170; J1885; J2250; J2405; J2710; J2765; J3010

== ENCOUNTER 2017-10-01 11:40 | Emergency (ER) | payer OTHER ==
[2017-10-01] MEDS: NS 1,000 ML IV ×2 (12:15→13:44)
[2017-10-01] MEDS: METOCLOPRAMIDE INJ 10MG/2ML VIAL (J2765) IV (12:36)
[2017-10-01 12:54] LABS: CONTROL LINE HCG INT CTR LINE PRESENT; HCG, SERUM QUALITATIVE NEGATIVE (NEGATIVE)
[2017-10-01 13:08] LABS: ANION GAP 6 MEQ/L (8-16); BLOOD UREA NITROGEN 7 MG/DL (7-18); CARBON DIOXIDE LEVEL 26 MEQ/L (21-32); CHLORIDE LEVEL 108 MEQ/L (98-107); CREATININE FOR GFR 0.77 MG/DL (0.55-1.30); GLOMERULAR FILTRATION RATE > 60.0 (>60); GLUCOSE, FASTING 92 MG/DL (70-100); POTASSIUM SERUM 2.9 MEQ/L (3.5-5.1); SODIUM LEVEL 140 MEQ/L (136-145)
[2017-10-01] MEDS: POTASSIUM CHLORIDE 10 MEQ SR TABLET PO ×2 (13:44→14:55)
== END 2017-10-01 14:59 | disposition home or self-care (01) ==
LOC: M ED 11:40
DX: E87.6 Hypokalemia (principal); K21.9 Gastro-esophageal reflux disease without esophagitis; Z79.899 Other long term (current) drug therapy; Z88.0 Allergy status to penicillin
CPT/HCPCS: J2765

== ENCOUNTER → 2019-05-11 | Outpatient (REF) | payer OTHER ==
[~2019-05-11] MED LIST changes: +HYDR-3715 PO; -NORC1TAB4 PO; +NORC1TAB7 PO; -NORCOTAB PO; -OMEP40CA2 PO; +OMEP40CA97 PO
[2019-05-11 13:57] LABS: BASO % 0.5 % (0.0-1.0); EOS # 0.1 10^3/uL (0.0-0.5); EOS % 1.1 % (0.0-3.0); HEMATOCRIT 35.3 % (36.0-47.0); LYMPH # 1.8 10^3/uL (1.5-5.0); MEAN CORPUSCULAR HEMOGLOBIN 33.1 pg (27.0-33.0); MEAN CORPUSCULAR VOLUME 97.5 fl (80.0-96.0); MONO # 0.4 10^3/uL (0.0-0.8); MONO % 5.6 % (0.0-5.0); NEUTROPHILS # 4.3 10^3/uL (1.5-8.5); NEUTROPHILS % 65.5 % (36.0-66.0); PLATELET COUNT, AUTOMATED 271 10^3/uL (150-450); RED BLOOD COUNT 3.62 10^6/uL (4.00-5.40); WHITE BLOOD COUNT 6.5 10^3/uL (4.0-10.0)
[2019-05-11 14:03] LABS: C REACTIVE PROTEIN QUANTITATIV 0.92 MG/DL (0.00-0.30); RHEUMATOID FACTOR QUANT < 10.0 IU/ML (<15.0)
[2019-05-11 15:00] LABS: ERYTHROCYTE SEDIMENTATION RATE 31 mm/hr (0-20)
[2019-05-13 00:07] LABS: ANTINUCLEAR ANTIBODIES DIRECT Negative (Negative); Lyme Disease IgG/IgM Antibodie <0.91 ISR (0.00-0.90); Lyme Disease IgM Ab Quantitati <0.80 index (0.00-0.79)
== END ==
LOC: M LABDRAW1 12:56
PROVIDERS: ATTEND Orthopaedic Surgery
DX: M54.42 Lumbago with sciatica, left side (principal)

== ENCOUNTER → 2019-06-18 | Outpatient (CLI) | payer OTHER ==
[~2019-06-18] MED LIST changes: +CONRAY-43 43% 50ML VIAL (Q9960) As Ordered ONE; +PROHANCE 279.3MG/ML 5ML VIAL (A9576) As Ordered ONE
--- NOTE | 2019-06-18 08:45 | REP ---
MRI lumbar spine: 06/18/2019. Indication: Lumbar radiculopathy. Comparison: None. Technique: Multiplanar short and long TR sequences of the lumbar spine were performed without IV Gadolinium. Findings: Lumbar vertebral body alignment is within anatomical limits. Small focal interosseous hemangioma versus focal fatty marrow is noted within the superior aspect of L4. No worrisome marrow or cord signal abnormalities are present. Disc desiccation and disc space narrowing are present at T12/L1 and L1/L2 and to a lesser extent L2/L3. No significant paraspinal soft tissue abnormalities are present. T12/L1 and L1/L2: Mild disc bulges are present without significant spinal canal / neural foraminal narrowing. L2/L3: There is a small far left lateral disc protrusion superimposed on a mild diffuse disc bulge without significant neural foraminal narrowing or nerve root impingement. There is no significant spinal canal narrowing. L3/L4, L4/L5 and L5/S1: There is no focal disc herniation or significant spinal canal / neural foraminal narrowing. Impression: Small far left lateral L2/L3 disc herniation. Additional mild degenerative sequelae as described. No severe spinal stenosis. Electronically Signed by Fabián Willams DO 06/18/2019 08:37 A
--- NOTE | 2019-06-18 10:27 | REP ---
MR ARTHROGRAM LEFT HIP: HISTORY: Left-sided pain. Rule out labral tear. COMPARISON STUDIES: Comparison MRI images November 17, [address] study April 20, 2010. There is an MRI study of the left hip from April 07, 2010 as well. TECHNIQUE: Precontrast imaging includes coronal T1- and T2-weighted scans of both hips. Postcontrast small field of view high resolution axial, coronal and sagittal images are acquired in T1 and T2-weighted scans with fat saturation. MR ARTHROGRAPHIC FINDINGS: Pre-injected T1 and T2-weighted bilateral study demonstrates a moderate sized left hip joint effusion before intra-articular injection. There is also T2 hyperintense edema pattern in the soft tissue adjacent to the greater trochanter on both sides which may be a reflection of tendonitis and/or bursitis. There is a small amount of edema in the extra-articular soft tissues superior and lateral to the left acetabular labrum. Pre-injection images demonstrate significant hypertrophy of the labral cartilage on the left with internal increased signal intensity consistent with a degenerative tear with enlargement of the acetabular labral cartilage superiorly. This is a new finding compared to the prior study. Post injection imaging shows good filling and enhancement. This hypertrophied labral cartilage does not appear to be completely surrounded by contrast enhanced synovial fluid. No definite loose body is felt to be present. Mucoid degeneration of the labral cartilage is a possibility. Ligamentum teres is intact. Post injection images are otherwise unremarkable. Retroverted uterus is seen. Urinary bladder is intact. No extra pelvic mass or internal pelvic mass or adenopathy is seen. On the right, there is subcortical cyst formation in the anterosuperior acetabulum which appears slightly larger than it did in retrospect on November 17, 2015 prior T2-weighted coronal scans. 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 There is a pre-injection joint effusion in the left hip. These findings are a change from the comparison MRI study. Subcortical cyst formation is seen in the superior acetabulum anteriorly on the right, which is also progressed. There is extra-articular T2 hyperintensity in the soft tissues adjacent to the greater trochanters bilaterally, right greater than left. Electronically Signed by Angus Maya MD 06/18/2019 10:53 A
--- NOTE | 2019-06-18 11:02 | REP ---
Reason For Exam/Comment: Left-sided pain, rule out labral tear Procedure: Left hip MRI arthrogram The procedure was performed by FRANDY Sands, under the direct supervision of Dr. Maya. The benefits and risks including but not limited to pain, infection, bleeding and anaphylaxis were explained to the patient and informed consent was obtained both verbally and written. Directly prior to the start of the procedure, a formal timeout was completed in the procedure room. Technique: The left femoral neck joint space was localized using fluoroscopic guidance. The skin was prepped and draped in the usual sterile fashion. 5 mL of 1% lidocaine 10 mg/ml was used as a local anesthetic. Using fluoroscopic guidance a 22-gauge spinal needle was inserted and advanced to the left femoral neck joint space . 1 mL of Conray 43 was injected to verify needle placement. 12 mL of a solution containing 20 ml of sterile saline and a 0.15 ml of ProHance was injected into the joint. The needle was removed and the patient was taken MRI for post procedural imaging. The patient tolerated the procedure well and there were no immediate complications. 0.2 minutes of fluoroscopy time was utilized for this procedure. Some fluoroscopic images are performed with last image hold technology. These images require no additional radiation. Reviewed by FRANDY Markham 06/18/2019 08:59 A Electronically Signed by Angus Maya MD 06/18/2019 10:53 A
== END ==
LOC: M RADPRO 06:21
PROVIDERS: ATTEND Orthopaedic Surgery
DX: M51.06 Intervertebral disc disorders with myelopathy, lumbar region (principal); M54.42 Lumbago with sciatica, left side
CPT/HCPCS: 27093; 72148; 73723; 77002; A9576; Q9960

== ENCOUNTER → 2019-08-20 | Outpatient (CLI) | payer OTHER ==
[~2019-08-20] MED LIST changes: -CONRAY-43 43% 50ML VIAL (Q9960) As Ordered ONE; -PROHANCE 279.3MG/ML 5ML VIAL (A9576) As Ordered ONE
[2019-08-20 12:03] LABS: HEMOGLOBIN 13.4 g/dl (12.0-15.5); MEAN CORPUSCULAR HEMOGLOBIN 33.1 pg (27.0-33.0); MEAN CORPUSCULAR HGB CONC 34.4 g/dl (32.0-36.5); MEAN CORPUSCULAR VOLUME 96.3 fl (80.0-96.0); PLATELET COUNT, AUTOMATED 271 10^3/uL (150-450); RED BLOOD COUNT 4.05 10^6/uL (4.00-5.40); WHITE BLOOD COUNT 6.2 10^3/uL (4.0-10.0)
[2019-08-20 12:33] LABS: ALT/SGPT 24 U/L (12-78); BILIRUBIN,TOTAL 0.2 MG/DL (0.2-1.0); BLOOD UREA NITROGEN 11 MG/DL (7-18); CALCIUM LEVEL 9.1 MG/DL (8.5-10.1); CARBON DIOXIDE LEVEL 27 MEQ/L (21-32); CHLORIDE LEVEL 104 MEQ/L (98-107); CHOLESTEROL LEVEL 225 MG/DL (<200); CHOLESTEROL RISK RATIO 4.166 (<5); CREATININE FOR GFR 0.83 MG/DL (0.55-1.30); GLOMERULAR FILTRATION RATE > 60.0 (>60); GLUCOSE, FASTING 100 MG/DL (70-100); HDL CHOLESTEROL 54 MG/DL (>40); IRON (FE) 74 UG/DL (50-170); LDL CHOLESTEROL 124 MG/DL (<100); NON-HDL-C 171 MG/DL; PERCENT SATURATION 19.3 % (13.2-45.0); POTASSIUM SERUM 4.5 MEQ/L (3.5-5.1); SODIUM LEVEL 137 MEQ/L (136-145); TOTAL IRON BINDING CAPACITY 384 UG/DL (250-450); TOTAL PROTEIN 7.2 GM/DL (6.4-8.2); TRIGLYCERIDES LEVEL 236 MG/DL (<150)
[2019-08-20 12:35] LABS: HEMOGLOBIN A1c 5.4 %
== END ==
LOC: M LAB 11:25
PROVIDERS: ATTEND Family Medicine
DX: E03.9 Hypothyroidism, unspecified (principal); R53.83 Other fatigue; D64.9 Anemia, unspecified

== ENCOUNTER → 2020-03-31 | Outpatient (REF) | payer OTHER | LOC: M LAB REF 12:17 | PROVIDERS: ATTEND Physician Assistant | DX: R10.30 Lower abdominal pain, unspecified (principal) ==

== ENCOUNTER 2020-04-18 11:50 | Emergency (ER) | payer OTHER ==
[~2020-04-18] VITALS: Ht 172.7 cm; Wt 105.1 kg
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
[2020-04-18] MEDS ORDERED: BOOSTRIX/ADACEL VACCINE (DIPHTH/PERTUSS/ACELL/TETANUS) 0.5ML SYR IM ONE (13:00)
[2020-04-18 13:42] VITALS: BP 136/96
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
== END 2020-04-18 13:44 | disposition home or self-care (01) ==
LOC: M ED 11:50
DX: S02.2XXA Fracture of nasal bones, initial encounter for closed fracture (principal); S00.81XA Abrasion of other part of head, initial encounter; S02.5XXA Fracture of tooth (traumatic), initial encounter for closed fracture; F10.120 Alcohol abuse with intoxication, uncomplicated; W01.198A Fall on same level from slipping, tripping and stumbling with subsequent striking against other object, initial encounter; Y92.480 Sidewalk as the place of occurrence of the external cause; Y93.01 Activity, walking, marching and hiking; Y99.8 Other external cause status; Z88.0 Allergy status to penicillin

== ENCOUNTER → 2022-02-11 | Outpatient (CLI) | payer OTHER ==
[~2022-02-11] MED LIST changes: +OMEP40CA4 PO; -OMEP40CA97 PO; -PHEN30CA2 PO; +PHEN30CA21 PO
== END ==
LOC: M RAD 16:14
PROVIDERS: ATTEND Physician Assistant
DX: M54.50 Low back pain, unspecified (principal); R10.84 Generalized abdominal pain

== ENCOUNTER → 2022-02-13 | Outpatient (CLI) | payer OTHER ==
[~2022-02-13] MED LIST changes: +ISOVUE-370 76% 100ML VIAL As Ordered ONE
== END ==
LOC: M RAD 15:49
PROVIDERS: ATTEND Physician Assistant
DX: R10.84 Generalized abdominal pain (principal)
CPT/HCPCS: 74178; Q9967

== ENCOUNTER → 2022-02-21 | Outpatient (CLI) | payer OTHER ==
[~2022-02-21] MED LIST changes: -ISOVUE-370 76% 100ML VIAL As Ordered ONE
== END ==
LOC: M WHC 13:56
PROVIDERS: ATTEND Physician Assistant Medical
DX: N63.12 Unspecified lump in the right breast, upper inner quadrant (principal)

== ENCOUNTER → 2022-03-21 | Outpatient (CLI) | payer OTHER ==
[~2022-03-21] MED LIST changes: +VITAD400CA FT
== END ==
LOC: M PLALAB 12:12
PROVIDERS: ATTEND Surgery
DX: Z13.79 Encounter for other screening for genetic and chromosomal anomalies (principal)

== ENCOUNTER → 2022-10-01 | Outpatient (CLI) | payer OTHER ==
[2022-10-01 15:53] LABS: HEMATOCRIT 39.2 % (36.0-47.0); HEMOGLOBIN 13.1 g/dl (12.0-15.5); MEAN CORPUSCULAR HEMOGLOBIN 32.3 pg (27.0-33.0); MEAN CORPUSCULAR HGB CONC 33.4 g/dl (32.0-36.5); MEAN CORPUSCULAR VOLUME 96.8 fl (80.0-96.0); PLATELET COUNT, AUTOMATED 265 10^3/uL (150-450); RED BLOOD COUNT 4.05 10^6/uL (4.00-5.40); WHITE BLOOD COUNT 6.2 10^3/uL (4.0-10.0)
[2022-10-01 16:42] LABS: ALBUMIN 4.1 G/DL (3.2-5.2); ALKALINE PHOSPHATASE 46 U/L (46-116); ALT/SGPT 35 U/L (7.0-40); AST/SGOT 52 U/L (<34); BILIRUBIN,TOTAL 0.5 MG/DL (0.3-1.2); BLOOD UREA NITROGEN 9 MG/DL (9-23); CALCIUM LEVEL 8.7 MG/DL (8.5-10.1); CARBON DIOXIDE LEVEL 29 MMOL/L (20-31); CHLORIDE LEVEL 104 MMOL/L (98-107); CHOLESTEROL LEVEL 195 MG/DL (<200); CHOLESTEROL RISK RATIO 4.24 (<5); CREATININE FOR GFR 0.75 MG/DL (0.55-1.30); GLOMERULAR FILTRATION RATE > 60.0 (>58); GLUCOSE, FASTING 100 MG/DL (60-100); HDL CHOLESTEROL 45.9 MG/DL (>40); LDL CHOLESTEROL 92.9 MG/DL (<100); NON-HDL-C 149.1 MG/DL; POTASSIUM SERUM 5.1 MMOL/L (3.5-5.1); SODIUM LEVEL 139 MMOL/L (136-145); TOTAL 25(OH) VITAMIN D 41.3 NG/ML (20.0-100.0); TOTAL PROTEIN 6.9 G/DL (5.7-8.2); TRIGLYCERIDES LEVEL 281 MG/DL (<150)
[2022-10-01 17:00] LABS: THYROID STIMULATING HORMONE 0.921 uIU/ML (0.55-4.78)
[2022-10-01 17:32] LABS: HEMOGLOBIN A1c 5.4 % (4.0-6.0)
== END ==
LOC: M LAB 13:04 → M RAD 13:04
PROVIDERS: ATTEND Family Medicine
DX: I10 Essential (primary) hypertension (principal); R53.83 Other fatigue

== ENCOUNTER → 2023-09-04 | Outpatient (CLI) | payer OTHER ==
[2023-09-04 09:36] LABS: HEMATOCRIT 39.3 % (36.0-47.0); HEMOGLOBIN 13.9 g/dl (12.0-15.5); MEAN CORPUSCULAR HEMOGLOBIN 33.4 pg (27.0-33.0); MEAN CORPUSCULAR HGB CONC 35.4 g/dl (32.0-36.5); MEAN CORPUSCULAR VOLUME 94.5 fl (80.0-96.0); PLATELET COUNT, AUTOMATED 293 10^3/uL (150-450); RED BLOOD COUNT 4.16 10^6/uL (4.00-5.40); WHITE BLOOD COUNT 7.4 10^3/uL (4.0-10.0)
[2023-09-04 09:53] LABS: HEMOGLOBIN A1c 5.4 % (4.0-6.0)
[2023-09-04 10:01] LABS: ALKALINE PHOSPHATASE 49 U/L (46-116); ALT/SGPT 18 U/L (7.0-40); AST/SGOT 11 U/L (<34); BILIRUBIN,TOTAL 0.3 MG/DL (0.3-1.2); BLOOD UREA NITROGEN 12 MG/DL (9-23); CALCIUM LEVEL 9.2 MG/DL (8.5-10.1); CARBON DIOXIDE LEVEL 29 MMOL/L (20-31); CHLORIDE LEVEL 106 MMOL/L (98-107); CHOLESTEROL LEVEL 203 MG/DL (<200); CHOLESTEROL RISK RATIO 4.83 (<5); CREATININE FOR GFR 0.75 MG/DL (0.55-1.30); GLOMERULAR FILTRATION RATE > 60.0 (>58); GLUCOSE, FASTING 100 MG/DL (60-100); IRON (FE) 58 UG/DL (50-170); LDL CHOLESTEROL 104.2 MG/DL (<100); PERCENT SATURATION 16.6 % (13.2-45.0); POTASSIUM SERUM 4.5 MMOL/L (3.5-5.1); SODIUM LEVEL 139 MMOL/L (136-145); TOTAL IRON BINDING CAPACITY 349 UG/DL (250-425); TOTAL PROTEIN 6.7 G/DL (5.7-8.2); TRIGLYCERIDES LEVEL 284 MG/DL (<150)
[2023-09-04 10:03] LABS: THYROID STIMULATING HORMONE 1.579 uIU/ML (0.55-4.78); TOTAL 25(OH) VITAMIN D 46.9 NG/ML (20.0-100.0)
== END ==
LOC: M LAB 07:28
PROVIDERS: ATTEND Family Medicine
DX: R53.83 Other fatigue (principal)

== ENCOUNTER → 2024-08-04 | Outpatient (CLI) | payer OTHER ==
[2024-08-04 12:51] LABS: HEMATOCRIT 38.9 % (36.0-47.0); HEMOGLOBIN 13.3 g/dl (12.0-15.5); MEAN CORPUSCULAR HEMOGLOBIN 32.4 pg (27.0-33.0); MEAN CORPUSCULAR HGB CONC 34.2 g/dl (32.0-36.5); MEAN CORPUSCULAR VOLUME 94.9 fl (80.0-96.0); PLATELET COUNT, AUTOMATED 253 10^3/uL (150-450); WHITE BLOOD COUNT 6.3 10^3/uL (4.0-10.0)
[2024-08-04 13:15] LABS: ALBUMIN 3.9 G/DL (3.2-5.2); ALKALINE PHOSPHATASE 42 U/L (35-104); ALT/SGPT 19 U/L (7.0-40); AST/SGOT 9 U/L (<34); BILIRUBIN,TOTAL 0.4 MG/DL (0.3-1.2); BLOOD UREA NITROGEN 11 MG/DL (9-23); CARBON DIOXIDE LEVEL 26 MMOL/L (20-31); CHLORIDE LEVEL 107 MMOL/L (98-107); CHOLESTEROL LEVEL 214 MG/DL (<200); CREATININE FOR GFR 0.67 MG/DL (0.55-1.30); GLOMERULAR FILTRATION RATE > 60.0 (>58); GLUCOSE, FASTING 100 MG/DL (60-100); HDL CHOLESTEROL 53.4 MG/DL (>40); LDL CHOLESTEROL 136.4 MG/DL (<100); NON-HDL-C 160.6 MG/DL; POTASSIUM SERUM 4.6 MMOL/L (3.5-5.1); SODIUM LEVEL 140 MMOL/L (136-145); TOTAL IRON BINDING CAPACITY 345 UG/DL (250-425); TOTAL PROTEIN 6.9 G/DL (5.7-8.2); TRIGLYCERIDES LEVEL 121 MG/DL (<150)
[2024-08-04 13:16] LABS: IRON (FE) 84 UG/DL (50-170); PERCENT SATURATION 24.3 % (13.2-45.0)
[2024-08-04 13:17] LABS: THYROID STIMULATING HORMONE 0.946 uIU/ML (0.55-4.78); TOTAL 25(OH) VITAMIN D 46.7 NG/ML (20.0-100.0)
[2024-08-04 13:21] LABS: HEMOGLOBIN A1c 5.4 % (4.0-6.0)
== END ==
LOC: M LAB 11:54
PROVIDERS: ATTEND Family Medicine
DX: R53.83 Other fatigue (principal)

== ENCOUNTER 2025-02-22 06:11 | Day surgery (SDC) | payer OTHER ==
[~2025-02-22] VITALS: Ht 172.7 cm; Wt 98.6 kg
[~2025-02-22 06:11] MED LIST changes: +CYAN500T14 PO; -IBUP-1022 PO; +IBUP600T42 PO; +MAGN400C PO; +OMEP1CAP73 PO; +PHEN37.511 PO; -VITAD400CA FT; +VITAD400CA PO; +ZYRTTAB8 PO
[2025-02-22] MEDS ORDERED: LR 1,000 ML IV SCH ×2 (06:25→08:10)
[2025-02-22] MEDS ORDERED: LIDOCAINE 2% 100 MG/5 ML SDV (FOR ANES.) As Ordered ONE (07:02)
[2025-02-22] MEDS ORDERED: MIDAZOLAM INJ 2 MG/2 ML VIAL As Ordered ONE (07:03)
[2025-02-22] MEDS ORDERED: ONDANSETRON 4MG 2ML VIAL As Ordered ONE (07:03)
[2025-02-22] MEDS ORDERED: dexAMETHasone 4 MG/ML 1 ML VIAL As Ordered ONE (07:03)
[2025-02-22] MEDS ORDERED: ACETAMINOPHEN 1000MG/100ML IV BAG As Ordered ONE (07:37)
[2025-02-22] MEDS ORDERED: KETOROLAC 30 MG/ML 1 ML VIAL As Ordered ONE (07:44)
[2025-02-22] MEDS ORDERED: ONDANSETRON 4MG 2ML VIAL IV PRN (08:10)
[2025-02-22] MEDS ORDERED: HYDROMORPHONE HCL 0.5 MG/0.5 ML SYRINGE IV PRN (08:10)
[2025-02-22 08:55] VITALS: BP 140/84; TEMP 96.9; O2SAT 100
== END 2025-02-22 09:02 | disposition home or self-care (01) ==
LOC: M SDC 06:11
PROVIDERS: ATTEND Orthopaedic Surgery Hand Surgery
DX: G56.02 Carpal tunnel syndrome, left upper limb (principal); E03.9 Hypothyroidism, unspecified; K21.9 Gastro-esophageal reflux disease without esophagitis; Z79.899 Other long term (current) drug therapy; Z88.0 Allergy status to penicillin; Z88.8 Allergy status to other drugs, medicaments and biological substances
CPT/HCPCS: 29848; J0131; J0665; J1100; J1885; J2250; J2405; J3010